=== PATIENT | female | born 1960 | race Caucasian/White ===

== ENCOUNTER → 2019-09-19 16:21 | Outpatient (CLI) | payer MEDICARE, MEDICAID, SELFPAY ==
--- NOTE | 2019-09-19 16:22 | MM_ITS ---
PROCEDURE: MM DIG SCREENING MAMM BI W/CAD CLINICAL INDICATION: screening There is a history of breast cancer patient's maternal aunt. There have been previous biopsies on each breast for benign disease. COMPARISON: None, this is a baseline screening examination TECHNIQUE: Standard CC and MLO images and 3D Tomosynthesis was obtained. R2 CAD reviewed. FINDINGS: [id number] fibroglandular densities are seen in the central portions of both breasts. There is a small spherical mass deep within the left breast medial aspect at approximately the 9 o'clock position with smooth borders and associated benign-appearing microcalcification. Recommend the patient return for ultrasound examination left breast since this is a baseline study. There is another benign-appearing microcalcification left breast. There are no suspicious microcalcifications. IMPRESSION: Fibrofatty parenchyma with benign-appearing asymmetric density left breast BI-RAD Category: 0 Need Additional Imaging Evaluation FOLLOW-UP: IMM Immediate Follow-up Recommended (A letter has been sent to the patient regarding results of the study.) Dictated by: Dr. Heriberto Worrell MD 09/19/2019 18:[address] Heriberto Worrell MD in [place] 09/19/2019 18:35
== END ==
PROVIDERS: PCP Nurse Practitioner Family; Visit Provider Emergency Medicine
DX: Z12.31 Encounter for screening mammogram for malignant neoplasm of breast (principal)
CPT/HCPCS: 77063; 77067

== ENCOUNTER → 2020-03-18 15:14 | Outpatient (CLI) | payer MEDICARE, MEDICAID, SELFPAY ==
[2020-03-18 15:51] LABS: Chloride 108 mmol/L (98-107); Sodium 145 mmol/L (136-145)
[2020-03-18 15:52] LABS: Potassium 4.7 mmoL/L (3.5-5.1)
[2020-03-18 15:54] LABS: Alanine Aminotransferase 11 U/L (12-78); Albumin Level 4.2 g/dl (3.5-5.0); Albumin/Globulin Ratio 1.5 (1.1-1.8); Alkaline Phosphatase 88 U/L (38-126); Anion Gap 12.7 mEq/L (5-15); Aspartate Amino Transferase 21 U/L (14-36); Bilirubin,Total 0.6 mg/dl (0.2-1.3); Blood Urea Nitrogen 13 mg/dl (7-17); Carbon Dioxide 29 mmol/L (22.0-30.0); Cholesterol 204 mg/dl (140-200); Estimated Glomerular Filt Rate 85 ml/min (>60); GFR (African American) 103 ML/MIN (>60); Globulin 2.8 g/dL (1.3-3.2); Triglycerides 105 mg/dl (30-150); VLDL Cholesterol 21 mg/dL (0-40)
[2020-03-18 15:55] LABS: Calcium 10.3 mg/dl (8.4-10.2); Chol/HDL Ratio 2.8 (1-3.5); Glucose 94 mg/dl (74-100); HDL Cholesterol 73 mg/dl (40-60)
[2020-03-18 16:06] LABS: Basophils # 0.1 K/mm3 (0-0.2); Basophils % 0.5 % (0.1-2.0); Eosinophils # 0.2 K/mm3 (0.0-0.4); Eosinophils % 2.2 % (0.1-12.0); Hematocrit 51.1 % (37.0-47.0); Hemoglobin 16.9 g/dL (12.2-16.2); Lymphocytes # 3.5 K/mm3 (0.7-4.5); Lymphocytes % 36.1 % (10-50); Mean Corpuscular HGB Conc 33.2 g/dL (31.8-35.4); Mean Corpuscular Hemoglobin 31.7 pg (27.0-31.2); Mean Corpuscular Volume 95.5 fl (81-99); Mean Platelet Volume 9.1 fl (7.4-10.4); Monocytes # 0.5 K/mm3 (0.1-1.0); Monocytes % 4.7 % (1.7-9.3); Neutrophils # 5.5 K/mm3 (1.8-7.8); Neutrophils % 56.5 % (37.0-80.0); Platelet Count 353 K/mm3 (142-424); Red Blood Count 5.35 M/mm3 (4.20-5.40); Red Cell Distribution Width 15.3 % (11.5-17.5); White Blood Count 9.8 K/mm3 (4.8-10.8)
[2020-03-18 16:07] LABS: Direct LDL Cholesterol 112.74 mg/dL (100-129)
[2020-03-18 16:10] LABS: 25-OH Vitamin D, Total 37.1 ng/mL (30-100)
[2020-03-18 16:26] LABS: Thyroid Stimulating Hormone 1.06 uIU/mL (0.465-4.68)
== END ==
PROVIDERS: Visit Provider Emergency Medicine
DX: K57.90 Diverticulosis of intestine, part unspecified, without perforation or abscess without bleeding (principal); E07.9 Disorder of thyroid, unspecified; E78.5 Hyperlipidemia, unspecified; E55.9 Vitamin D deficiency, unspecified
CPT/HCPCS: 80053; 80061; 82306; 84439; 84443; 85025

== ENCOUNTER → 2020-04-09 08:41 | Outpatient (CLI) | payer MEDICARE, MEDICAID, SELFPAY ==
--- NOTE | 2020-04-09 08:41 | US_ITS ---
PROCEDURE: US BREAST LT COMPLETE CLINICAL INDICATION: abn mamm COMPARISON: MG MM DIG SCREENING MAMM BI W/CAD from 09/19/2019 FINDINGS: Appearing cystic lesion at the 10 o'clock position near the nipple measuring 0.6 by 0.7 x 0.4 cm. This appears to be a benign cyst with internal septation. Mild acoustic enhancement beneath this lesion. There is a smaller cystic lesion 12 o'clock position near the nipple measuring 0.3 by point 2 by 0.3 cm in this likely is a small benign cyst. There is another small cystic lesion at the 11 o'clock position near the nipple measuring 0.3 by 0.2 x 0.5 cm. There are 2 normal appearing nodes in the axilla. There is no suspicious solid lesions seen. IMPRESSION: Primarily benign-appearing cystic lesions all near the nipple. Since the small nodular density seen deep within the left breast on the baseline mammogram is not definitely seen on the ultrasound exam recommend for six-month follow-up left mammogram for continuing evaluation at which time repeat ultrasound could be performed as well. Dictated by: Dr. Heriberto Worrell MD 04/17/2020 14:07 Dr. Heriberto Worrell MD in [place] 04/17/2020 14:07
== END ==
PROVIDERS: PCP Emergency Medicine; Visit Provider Emergency Medicine
DX: R92.8 Other abnormal and inconclusive findings on diagnostic imaging of breast (principal)
CPT/HCPCS: 76641

== ENCOUNTER → 2020-09-28 17:27 | Outpatient (CLI) | payer MEDICARE, MEDICAID, SELFPAY ==
[2020-09-28 20:17] LABS: Amphetamine/Metha Screen,Urine Negative ng/ml (<1000); Barbiturates Screen,Urine Negative ng/ml (<200)
[2020-09-28 20:18] LABS: Benzodiazepines Screen,Urine Negative ng/ml (<200)
[2020-09-28 20:19] LABS: Cannabinoid Screen,Urine Positive ng/ml (<50); Cocaine Screen,Urine Negative ng/ml (<300)
[2020-09-28 20:20] LABS: Methadone Screen,Urine Negative ng/ml (<300)
[2020-09-28 20:21] LABS: Opiate Screen,Urine Negative ng/ml (<300); Phencyclidine Screen,Urine Negative ng/ml (<25)
== END ==
PROVIDERS: Visit Provider Emergency Medicine
DX: M54.5 Low back pain (principal); Z79.899 Other long term (current) drug therapy
CPT/HCPCS: 80305

== ENCOUNTER → 2020-11-27 16:39 | Outpatient (CLI) | payer MEDICARE, MEDICAID, SELFPAY ==
[2020-11-27 18:01] LABS: Benzodiazepines Screen,Urine Negative ng/ml (<200)
[2020-11-27 18:02] LABS: Amphetamine/Metha Screen,Urine Negative ng/ml (<1000)
[2020-11-27 18:03] LABS: Barbiturates Screen,Urine Negative ng/ml (<200)
[2020-11-27 18:04] LABS: Cannabinoid Screen,Urine Positive ng/ml (<50); Cocaine Screen,Urine Negative ng/ml (<300)
[2020-11-27 18:05] LABS: Methadone Screen,Urine Negative ng/ml (<300)
[2020-11-27 18:06] LABS: Opiate Screen,Urine Negative ng/ml (<300)
[2020-11-27 18:07] LABS: Phencyclidine Screen,Urine Negative ng/ml (<25)
== END ==
PROVIDERS: Visit Provider Emergency Medicine
DX: M54.5 Low back pain (principal)
CPT/HCPCS: 80305

== ENCOUNTER → 2021-01-27 17:58 | Outpatient (CLI) | payer MEDICARE, MEDICAID, SELFPAY ==
[2021-01-27 19:26] LABS: Amphetamine/Metha Screen,Urine Negative ng/ml (<1000); Barbiturates Screen,Urine Negative ng/ml (<200)
[2021-01-27 19:27] LABS: Benzodiazepines Screen,Urine Negative ng/ml (<200); Cannabinoid Screen,Urine Positive ng/ml (<50)
[2021-01-27 19:28] LABS: Cocaine Screen,Urine Negative ng/ml (<300)
[2021-01-27 19:29] LABS: Methadone Screen,Urine Negative ng/ml (<300); Opiate Screen,Urine Negative ng/ml (<300)
[2021-01-27 19:31] LABS: Phencyclidine Screen,Urine Negative ng/ml (<25)
== END ==
PROVIDERS: Visit Provider Emergency Medicine
DX: M54.5 Low back pain (principal)
CPT/HCPCS: 80305

== ENCOUNTER → 2021-03-24 15:13 | Outpatient (CLI) | payer MEDICARE, MEDICAID, SELFPAY ==
[2021-03-24 15:56] LABS: Amphetamine/Metha Screen,Urine Negative ng/ml (<1000)
[2021-03-24 15:57] LABS: Barbiturates Screen,Urine Negative ng/ml (<200); Benzodiazepines Screen,Urine Negative ng/ml (<200)
[2021-03-24 15:58] LABS: Cannabinoid Screen,Urine Positive ng/ml (<50)
[2021-03-24 15:59] LABS: Cocaine Screen,Urine Negative ng/ml (<300)
[2021-03-24 16:00] LABS: Methadone Screen,Urine Negative ng/ml (<300)
[2021-03-24 16:01] LABS: Opiate Screen,Urine Negative ng/ml (<300); Phencyclidine Screen,Urine Negative ng/ml (<25)
== END ==
PROVIDERS: Visit Provider Emergency Medicine
DX: M54.5 Low back pain (principal)
CPT/HCPCS: 80305

== ENCOUNTER → 2021-04-13 09:25 | Outpatient (CLI) | payer MEDICARE, MEDICAID, SELFPAY ==
--- NOTE | 2021-04-13 09:25 | US_ITS ---
PROCEDURE: US BREAST LT COMPLETE CLINICAL INDICATION: abn mammogram COMPARISON: MG MM DIG SCREENING MAMM BI W/CAD from 09/19/2019 US US BREAST LT COMPLETE from 04/09/2020 FINDINGS: At 12 o'clock there is a 4 x 3 mm cyst. At 10 o'clock there is a 5 mm complicated cyst near the nipple.. This cyst has developed some nodular wall thickening posteriorly since the previous exam. At 11 o'clock there is a 3 mm cyst. No sonographic abnormality that would correspond to the mammographic abnormality on 09/19/2019exam exam. Therefore, recommend mammogram for further evaluation. IMPRESSION: Left breast cysts as described above 1 of which is developed a complex appearance with discordant findings compared to mammogram of 09/19/2019. BI-RADS category 0, and additional imaging suggested. Recommend mammogram for further evaluation of both breasts as the patient is due for a right-sided checkup as well Dictated by: Enrique Hanks MD 04/23/2021 10:58 Enrique Hanks MD in [place] 04/23/2021 10:58
== END ==
PROVIDERS: PCP Emergency Medicine; Visit Provider Emergency Medicine
DX: R92.8 Other abnormal and inconclusive findings on diagnostic imaging of breast (principal)
CPT/HCPCS: 76641

== ENCOUNTER → 2021-05-06 09:46 | Outpatient (CLI) | payer MEDICARE, MEDICAID, SELFPAY ==
--- NOTE | 2021-05-06 09:46 | FL_ITS ---
PROCEDURE: FL BARIUM SWALLOW CLINICAL INDICATION: dysphagia COMPARISON: No exams were available for comparison TECHNIQUE: In the upright position the patient was observed to swallow barium in both the AP and lateral view. The cervical esophagus was examined under fluoroscopy with images obtained. The patient was then placed prone in the right anterior oblique position and was observed to swallow barium with Valsalva technique . FLUOROSCOPY TIME: 2 minutes 10 seconds FINDINGS: There was no evidence of aspiration. Swallowing function is normal. Spot films of the cervical esophagus show mild intermittent posterior indentation of the barium column at the C6-7 level consistent with cricopharyngeal dysfunction. There are few tertiary contractions in the lower 2/3 of the esophagus. There is no hiatal hernia or GE reflux seen. IMPRESSION: Mild cricopharyngeal dysfunction lower cervical esophagus and very mild esophageal dyskinesia lower 3rd of the esophagus Dictated by: Dr. Heriberto Worrell MD 05/06/2021 11:52 Dr. Heriberto Worrell MD in [place] 05/06/2021 11:52
== END ==
PROVIDERS: PCP Emergency Medicine; Visit Provider Emergency Medicine
DX: R13.10 Dysphagia, unspecified (principal)
CPT/HCPCS: 74220

== ENCOUNTER → 2021-05-19 14:45 | Outpatient (CLI) | payer MEDICARE, MEDICAID, SELFPAY ==
[2021-05-19 18:01] LABS: Amphetamine/Metha Screen,Urine Negative ng/ml (<1000)
[2021-05-19 18:02] LABS: Barbiturates Screen,Urine Negative ng/ml (<200); Cannabinoid Screen,Urine Positive ng/ml (<50)
[2021-05-19 18:03] LABS: Cocaine Screen,Urine Negative ng/ml (<300); Methadone Screen,Urine Negative ng/ml (<300)
[2021-05-19 18:04] LABS: Opiate Screen,Urine Negative ng/ml (<300)
[2021-05-19 18:05] LABS: Phencyclidine Screen,Urine Negative ng/ml (<25)
[2021-05-19 18:09] LABS: Benzodiazepines Screen,Urine Negative ng/ml (<200)
== END ==
PROVIDERS: Visit Provider Emergency Medicine
DX: Z79.899 Other long term (current) drug therapy (principal)
CPT/HCPCS: 80305

== ENCOUNTER → 2021-07-16 13:55 | Outpatient (CLI) | payer MEDICARE, MEDICAID, SELFPAY ==
[2021-07-16 14:40] LABS: Amphetamine/Metha Screen,Urine Negative ng/ml (<1000)
[2021-07-16 14:41] LABS: Barbiturates Screen,Urine Negative ng/ml (<200)
[2021-07-16 14:43] LABS: Benzodiazepines Screen,Urine Negative ng/ml (<200); Cannabinoid Screen,Urine Positive ng/ml (<50)
[2021-07-16 14:44] LABS: Cocaine Screen,Urine Negative ng/ml (<300)
[2021-07-16 14:45] LABS: Methadone Screen,Urine Negative ng/ml (<300); Opiate Screen,Urine Negative ng/ml (<300)
[2021-07-16 14:46] LABS: Phencyclidine Screen,Urine Negative ng/ml (<25)
== END ==
PROVIDERS: Visit Provider Emergency Medicine
DX: Z79.899 Other long term (current) drug therapy (principal)
CPT/HCPCS: 80305

== ENCOUNTER → 2021-09-15 14:38 | Outpatient (CLI) | payer MEDICARE, MEDICAID, SELFPAY ==
[2021-09-15 13:02] LABS: Basophils # 0.1 K/mm3 (0-0.2); Basophils % 0.4 % (0.1-2.0); Eosinophils # 0.2 K/mm3 (0.0-0.4); Hematocrit 48.1 % (37.0-47.0); Hemoglobin 15.9 g/dL (12.2-16.2); Lymphocytes # 4.1 K/mm3 (0.7-4.5); Lymphocytes % 37.9 % (10-50); Mean Corpuscular Hemoglobin 32.2 pg (27.0-31.2); Mean Corpuscular Volume 97.6 fl (81-99); Mean Platelet Volume 8.9 fl (7.4-10.4); Monocytes # 0.7 K/mm3 (0.1-1.0); Monocytes % 6.1 % (1.7-9.3); Neutrophils # 5.8 K/mm3 (1.8-7.8); Neutrophils % 53.7 % (37.0-80.0); Platelet Count 326 K/mm3 (142-424); Red Blood Count 4.93 M/mm3 (4.20-5.40); Red Cell Distribution Width 13.8 % (11.5-17.5); White Blood Count 10.7 K/mm3 (4.8-10.8)
[2021-09-15 13:59] LABS: 25-OH Vitamin D, Total 39.4 ng/mL (30-100); Free T4 (Free Thyroxine) 1.62 ng/dl (0.78-2.19)
[2021-09-15 14:14] LABS: Phencyclidine Screen,Urine Negative ng/ml (<25)
[2021-09-15 14:23] LABS: Amphetamine/Metha Screen,Urine Negative ng/ml (<1000)
[2021-09-15 14:25] LABS: Cannabinoid Screen,Urine Positive ng/ml (<50)
[2021-09-15 14:26] LABS: Barbiturates Screen,Urine Negative ng/ml (<200); Benzodiazepines Screen,Urine Negative ng/ml (<200)
[2021-09-15 14:27] LABS: Cocaine Screen,Urine Negative ng/ml (<300); Methadone Screen,Urine Negative ng/ml (<300)
[2021-09-15 14:28] LABS: Opiate Screen,Urine Negative ng/ml (<300)
[2021-09-15 15:08] LABS: Chloride 106 mmol/L (98-107); Sodium 136 mmol/L (136-145)
[2021-09-15 15:09] LABS: Potassium 4.4 mmoL/L (3.5-5.1)
[2021-09-15 15:11] LABS: Alanine Aminotransferase 17 U/L (12-78); Albumin Level 4.3 g/dl (3.5-5.0); Albumin/Globulin Ratio 1.9 (1.1-1.8); Alkaline Phosphatase 99 U/L (38-126); Anion Gap 6.4 mEq/L (5-15); Aspartate Amino Transferase 26 U/L (14-36); Bilirubin,Total 0.5 mg/dl (0.2-1.3); Blood Urea Nitrogen 19 mg/dl (7-17); Carbon Dioxide 28 mmol/L (22.0-30.0); Cholesterol 131 mg/dl (140-200); Estimated Glomerular Filt Rate 101 ml/min (>60); GFR (African American) 122 ML/MIN (>60); Globulin 2.3 g/dL (1.3-3.2); Total Protein,Serum 6.6 g/dl (6.3-8.2); Triglycerides 77 mg/dl (30-150); VLDL Cholesterol 15 mg/dL (0-40)
[2021-09-15 15:12] LABS: Calcium 8.7 mg/dl (8.4-10.2); Glucose 94 mg/dl (74-100); HDL Cholesterol 64 mg/dl (40-60)
[2021-09-15 15:22] LABS: Direct LDL Cholesterol 56.13 mg/dL (100-129)
[2021-09-15 15:40] LABS: Thyroid Stimulating Hormone 0.08 uIU/mL (0.465-4.68)
== END ==
PROVIDERS: Visit Provider Emergency Medicine
DX: G89.29 Other chronic pain (principal); J44.9 Chronic obstructive pulmonary disease, unspecified; M54.50 Low back pain, unspecified; R50.9 Fever, unspecified; Z79.899 Other long term (current) drug therapy; E55.9 Vitamin D deficiency, unspecified
CPT/HCPCS: 80053; 80061; 80305; 82306; 84439; 84443; 85025

== ENCOUNTER → 2021-11-10 12:43 | Outpatient (CLI) | payer MEDICARE, MEDICAID, SELFPAY ==
[2021-11-10 14:28] LABS: Amphetamine/Metha Screen,Urine Negative ng/ml (<1000)
[2021-11-10 14:29] LABS: Barbiturates Screen,Urine Negative ng/ml (<200)
[2021-11-10 14:30] LABS: Benzodiazepines Screen,Urine Negative ng/ml (<200); Cannabinoid Screen,Urine Positive ng/ml (<50)
[2021-11-10 14:31] LABS: Cocaine Screen,Urine Negative ng/ml (<300)
[2021-11-10 14:32] LABS: Methadone Screen,Urine Negative ng/ml (<300); Opiate Screen,Urine Negative ng/ml (<300)
[2021-11-10 14:33] LABS: Phencyclidine Screen,Urine Negative ng/ml (<25)
== END ==
PROVIDERS: PCP Emergency Medicine; Visit Provider Emergency Medicine
DX: Z79.899 Other long term (current) drug therapy (principal)
CPT/HCPCS: 80305

== ENCOUNTER → 2022-01-05 14:18 | Outpatient (CLI) | payer MEDICARE, MEDICAID, SELFPAY ==
[2022-01-05 13:49] LABS: Amphetamine/Metha Screen,Urine Negative ng/ml (<1000)
[2022-01-05 13:50] LABS: Barbiturates Screen,Urine Negative ng/ml (<200); Benzodiazepines Screen,Urine Negative ng/ml (<200)
[2022-01-05 13:51] LABS: Cannabinoid Screen,Urine Positive ng/ml (<50)
[2022-01-05 13:52] LABS: Cocaine Screen,Urine Negative ng/ml (<300); Methadone Screen,Urine Negative ng/ml (<300)
[2022-01-05 13:53] LABS: Opiate Screen,Urine Positive ng/ml (<300)
[2022-01-05 13:55] LABS: Phencyclidine Screen,Urine Negative ng/ml (<25)
== END ==
PROVIDERS: PCP Emergency Medicine; Visit Provider Emergency Medicine
DX: Z79.899 Other long term (current) drug therapy (principal)
CPT/HCPCS: 80305

== ENCOUNTER → 2022-04-22 07:15 | Outpatient (CLI) | payer MEDICARE, MEDICAID, SELFPAY ==
[2022-04-22 18:49] LABS: Amphetamine/Metha Screen,Urine Negative ng/ml (<1000); Barbiturates Screen,Urine Negative ng/ml (<200)
[2022-04-22 18:50] LABS: Benzodiazepines Screen,Urine Negative ng/ml (<200)
[2022-04-22 18:51] LABS: Cannabinoid Screen,Urine Positive ng/ml (<50)
[2022-04-22 18:52] LABS: Cocaine Screen,Urine Negative ng/ml (<300); Methadone Screen,Urine Negative ng/ml (<300)
[2022-04-22 18:53] LABS: Opiate Screen,Urine Negative ng/ml (<300)
[2022-04-22 18:54] LABS: Phencyclidine Screen,Urine Negative ng/ml (<25)
== END ==
PROVIDERS: PCP Emergency Medicine; Visit Provider Emergency Medicine
DX: Z79.899 Other long term (current) drug therapy (principal)
CPT/HCPCS: 80305

== ENCOUNTER → 2022-06-20 11:00 | Outpatient (CLI) | payer MEDICARE, MEDICAID, SELFPAY ==
[2022-06-20 19:25] LABS: Amphetamine/Metha Screen,Urine Negative ng/ml (<1000)
[2022-06-20 19:26] LABS: Barbiturates Screen,Urine Negative ng/ml (<200)
[2022-06-20 19:27] LABS: Benzodiazepines Screen,Urine Negative ng/ml (<200); Cannabinoid Screen,Urine Positive ng/ml (<50)
[2022-06-20 19:28] LABS: Cocaine Screen,Urine Negative ng/ml (<300); Methadone Screen,Urine Negative ng/ml (<300)
[2022-06-20 19:29] LABS: Opiate Screen,Urine Negative ng/ml (<300)
[2022-06-20 19:53] LABS: Phencyclidine Screen,Urine Negative ng/ml (<25)
== END ==
PROVIDERS: PCP Emergency Medicine; Visit Provider Emergency Medicine
DX: Z79.899 Other long term (current) drug therapy (principal)
CPT/HCPCS: 80305

== ENCOUNTER → 2022-10-05 09:58 | Outpatient (CLI) | payer MEDICARE, MEDICAID, SELFPAY ==
[2022-10-05 14:10] LABS: Basophils # 0.1 K/mm3 (0-0.2); Basophils % 0.8 % (0.1-2.0); Eosinophils # 0.2 K/mm3 (0.0-0.4); Eosinophils % 2.1 % (0.1-12.0); Hematocrit 48.1 % (37.0-47.0); Hemoglobin 15.7 g/dL (12.2-16.2); Lymphocytes # 4.1 K/mm3 (0.7-4.5); Lymphocytes % 38.3 % (10-50); Mean Corpuscular HGB Conc 32.6 g/dL (31.8-35.4); Mean Corpuscular Hemoglobin 32.8 pg (27.0-31.2); Mean Corpuscular Volume 100.5 fl (81-99); Mean Platelet Volume 9.6 fl (7.4-10.4); Monocytes # 0.5 K/mm3 (0.1-1.0); Monocytes % 4.9 % (1.7-9.3); Neutrophils # 5.8 K/mm3 (1.8-7.8); Neutrophils % 53.9 % (37.0-80.0); Platelet Count 318 K/mm3 (142-424); Red Blood Count 4.79 M/mm3 (4.20-5.40); Red Cell Distribution Width 14.7 % (11.5-17.5); White Blood Count 10.7 K/mm3 (4.8-10.8)
[2022-10-05 14:16] LABS: Amphetamine/Metha Screen,Urine Negative ng/ml (<1000)
[2022-10-05 14:17] LABS: Barbiturates Screen,Urine Negative ng/ml (<200)
[2022-10-05 14:18] LABS: Benzodiazepines Screen,Urine Negative ng/ml (<200); Methadone Screen,Urine Negative ng/ml (<300)
[2022-10-05 14:19] LABS: Cannabinoid Screen,Urine Positive ng/ml (<50); Cocaine Screen,Urine Negative ng/ml (<300)
[2022-10-05 14:20] LABS: Phencyclidine Screen,Urine Negative ng/ml (<25)
[2022-10-05 14:21] LABS: Opiate Screen,Urine Positive ng/ml (<300)
[2022-10-05 14:41] LABS: Alanine Aminotransferase 16 U/L (12-78); Albumin Level 3.9 g/dl (3.5-5.0); Albumin/Globulin Ratio 1.6 (1.1-1.8); Alkaline Phosphatase 92 U/L (38-126); Anion Gap 6.2 mEq/L (5-15); Aspartate Amino Transferase 27 U/L (14-36); Bilirubin,Total 0.6 mg/dl (0.2-1.3); Blood Urea Nitrogen 12 mg/dl (7-17); Calcium 8.7 mg/dl (8.4-10.2); Carbon Dioxide 29 mmol/L (22.0-30.0); Chloride 106 mmol/L (98-107); Chol/HDL Ratio 1.9 (1-3.5); Cholesterol 113 mg/dl (140-200); Estimated Glomerular Filt Rate 101 ml/min (>60); GFR (African American) 122 ML/MIN (>60); Globulin 2.4 g/dL (1.3-3.2); Glucose 82 mg/dl (74-100); HDL Cholesterol 60 mg/dl (40-60); Potassium 4.2 mmoL/L (3.5-5.1); Sodium 137 mmol/L (136-145); Total Protein,Serum 6.3 g/dl (6.3-8.2); Triglycerides 90 mg/dl (30-150); VLDL Cholesterol 18 mg/dL (0-40)
[2022-10-05 14:56] LABS: Free T4 (Free Thyroxine) 1.97 ng/dl (0.78-2.19)
[2022-10-05 15:13] LABS: Thyroid Stimulating Hormone 0.11 uIU/mL (0.465-4.68)
== END ==
PROVIDERS: PCP Emergency Medicine; Visit Provider Emergency Medicine
DX: R53.83 Other fatigue (principal); Z79.899 Other long term (current) drug therapy; E07.9 Disorder of thyroid, unspecified; E55.9 Vitamin D deficiency, unspecified; M54.41 Lumbago with sciatica, right side
CPT/HCPCS: 80053; 80061; 80305; 82306; 84439; 84443; 85025

== ENCOUNTER → 2022-10-18 13:36 | Outpatient (CLI) | payer MEDICARE, MEDICAID, SELFPAY ==
--- NOTE | 2022-10-18 13:36 | CT_ITS ---
FINAL REPORT CLINICAL HISTORY: lung cancer screening CURRENT SMOKER 1/2PPD X35 YEARS FINDINGS: Low-Dose Chest CT CTDI vol (mGy): 2.90 DLP (mGy-cm): 97.95 Axial images were obtained from the lung apex to the mid abdomen by computed tomography. Low-dose protocol was utilized. FINDINGS: CHEST: There is no axillary adenopathy. There is no hilar or mediastinal adenopathy. The heart is proper size. There is no pericardial or pleural effusion. Limited images of the upper abdomen are unremarkable. Lung window images demonstrate no suspicious infiltrate or nodule. There is linear scarring or atelectasis in the inferior right upper lobe and lingula. IMPRESSION: Lung RADS category 1. Recommend 12 month follow-up low-dose chest CT. Reviewed, Interpreted and Dictated by Leandro Allen MD Transcribed by Pepe Dukes Authenticated and [facility]
--- NOTE | 2022-10-18 13:51 | MR_ITS ---
FINAL REPORT CLINICAL HISTORY: back pain pain since she was 12 years old FINDINGS: Multiplanar MR imaging of the lumbar spine was performed without contrast. On the sagittal T2-weighted images, there is abnormal decreased signal at L3-4, L4-5 and L5-S1 lumbar discs. The vertebrae are of normal height. There is minimal spondylolisthesis of L4 on L5. L1-2: There is no significant canal stenosis or neural foraminal narrowing. L2-3: There is no significant canal stenosis or neural foraminal narrowing. L3-4: There is a mild diffuse disc bulge with left posterolateral disc protrusion. There is moderate left neural foraminal narrowing. L4-5: A moderate diffuse disc bulge is present with moderate spinal canal compromise and moderate to high-grade left neural foraminal narrowing. L5-S1: A mild diffuse disc bulge is present with moderate right neural foraminal narrowing. IMPRESSION: Minimal spondylolisthesis of L4 on L5. Neuroforaminal compromise, most evidence on the left at L3-4 and L4-5 and on the right at L5-S1. Reviewed, Interpreted and Dictated by Leandro Allen MD Transcribed by Stacia Zhao Authenticated and . [facility]
== END ==
PROVIDERS: PCP Emergency Medicine; Visit Provider Emergency Medicine
DX: Z87.891 Personal history of nicotine dependence (principal); M54.16 Radiculopathy, lumbar region; Z12.2 Encounter for screening for malignant neoplasm of respiratory organs
CPT/HCPCS: 71271; 72148; 76376

== ENCOUNTER → 2022-11-23 10:17 | Outpatient (CLI) | payer MEDICARE, MEDICAID, SELFPAY ==
--- NOTE | 2022-11-23 10:18 | MM_ITS ---
PROCEDURE INFORMATION: Exam: MG Bilateral Screening 3D Mammography Exam date and time: 11/23/2022 10:11 AM Age: 62 years old Clinical indication: Screening examination TECHNIQUE: Imaging protocol: Bilateral Screening tomosynthesis and 2D mammography including computer-aided detection (CAD) when performed. COMPARISON: 1. MG MM DIG SCREENING MAMM BI W/CAD 09/19/2019 4:31 PM 2. US BREAST LT COMPLETE 04/13/2021 9:39 AM FINDINGS: MAMMOGRAPHY: Breast composition: There are scattered areas of fibroglandular density. Mass: None. Architectural distortion: None. Calcifications: No suspicious calcifications. Asymmetric density: None. Skin thickening: None. Axillary adenopathy: None. IMPRESSION: No mammographic evidence of malignancy. Annual screening is recommended unless otherwise clinically indicated. ASSESSMENT: BI-RADS Category 1: Negative
== END ==
PROVIDERS: PCP Emergency Medicine; Visit Provider Physician Assistant
DX: Z12.31 Encounter for screening mammogram for malignant neoplasm of breast (principal)
CPT/HCPCS: 77063; 77067

== ENCOUNTER → 2022-12-06 11:15 | Outpatient (CLI) | payer MEDICARE, MEDICAID, SELFPAY ==
[2022-12-06 15:52] LABS: Barbiturates Screen,Urine Negative ng/ml (<200)
[2022-12-06 15:53] LABS: Amphetamine/Metha Screen,Urine Negative ng/ml (<1000); Benzodiazepines Screen,Urine Negative ng/ml (<200)
[2022-12-06 15:54] LABS: Cannabinoid Screen,Urine Positive ng/ml (<50)
[2022-12-06 15:55] LABS: Cocaine Screen,Urine Negative ng/ml (<300); Methadone Screen,Urine Negative ng/ml (<300)
[2022-12-06 15:56] LABS: Opiate Screen,Urine Negative ng/ml (<300); Phencyclidine Screen,Urine Negative ng/ml (<25)
== END ==
PROVIDERS: PCP Emergency Medicine; Visit Provider Emergency Medicine
DX: Z79.899 Other long term (current) drug therapy (principal)
CPT/HCPCS: 80305

== ENCOUNTER → 2023-04-19 09:55 | Outpatient (CLI) | payer MEDICARE, MEDICAID, SELFPAY ==
[2023-03-31 14:02] LABS: Amphetamine/Metha Screen,Urine Negative ng/ml (<1000)
[2023-03-31 14:03] LABS: Cannabinoid Screen,Urine Positive ng/ml (<50)
[2023-03-31 14:04] LABS: Barbiturates Screen,Urine Negative ng/ml (<200)
[2023-03-31 14:05] LABS: Benzodiazepines Screen,Urine Negative ng/ml (<200); Opiate Screen,Urine Negative ng/ml (<300)
[2023-03-31 14:06] LABS: Cocaine Screen,Urine Negative ng/ml (<300)
[2023-03-31 14:07] LABS: Methadone Screen,Urine Negative ng/ml (<300)
[2023-03-31 14:09] LABS: Phencyclidine Screen,Urine Negative ng/ml (<25)
== END ==
PROVIDERS: PCP Emergency Medicine; Visit Provider Emergency Medicine
DX: Z79.899 Other long term (current) drug therapy (principal)
CPT/HCPCS: 80305

== ENCOUNTER → 2023-05-29 16:33 | Outpatient (CLI) | payer MEDICARE, MEDICAID, SELFPAY ==
[2023-05-29 23:09] LABS: Amphetamine/Metha Screen,Urine Negative ng/ml (<1000)
[2023-05-29 23:10] LABS: Barbiturates Screen,Urine Negative ng/ml (<200); Benzodiazepines Screen,Urine Negative ng/ml (<200)
[2023-05-29 23:11] LABS: Cannabinoid Screen,Urine Positive ng/ml (<50)
[2023-05-29 23:12] LABS: Cocaine Screen,Urine Negative ng/ml (<300); Methadone Screen,Urine Negative ng/ml (<300)
[2023-05-29 23:13] LABS: Opiate Screen,Urine Negative ng/ml (<300); Phencyclidine Screen,Urine Negative ng/ml (<25)
== END ==
PROVIDERS: PCP Emergency Medicine; Visit Provider Emergency Medicine
DX: Z79.899 Other long term (current) drug therapy (principal)
CPT/HCPCS: 80305

== ENCOUNTER → 2023-06-20 09:10 | Outpatient (CLI) | payer MEDICARE, MEDICAID, SELFPAY ==
[2023-06-20 23:20] LABS: Phencyclidine Screen,Urine Negative ng/ml (<25)
[2023-06-20 23:26] LABS: Amphetamine/Metha Screen,Urine Negative ng/ml (<1000)
[2023-06-20 23:27] LABS: Barbiturates Screen,Urine Negative ng/ml (<200); Benzodiazepines Screen,Urine Negative ng/ml (<200)
[2023-06-20 23:28] LABS: Cannabinoid Screen,Urine Positive ng/ml (<50)
[2023-06-20 23:31] LABS: Cocaine Screen,Urine Negative ng/ml (<300); Opiate Screen,Urine Negative ng/ml (<300)
[2023-06-20 23:32] LABS: Methadone Screen,Urine Negative ng/ml (<300)
== END ==
PROVIDERS: PCP Emergency Medicine; Visit Provider Emergency Medicine
DX: Z79.899 Other long term (current) drug therapy (principal)
CPT/HCPCS: 80305

== ENCOUNTER → 2023-07-05 10:18 | Outpatient (CLI) | payer MEDICARE, MEDICAID, SELFPAY ==
--- NOTE | 2023-07-05 10:24 | XR_ITS ---
FINAL REPORT CLINICAL HISTORY: dyspnea FINDINGS: TWO-VIEW CHEST The heart size is normal. The mediastinum is normal. The lungs are hyperinflated consistent with COPD. There is no pneumothorax. IMPRESSION: No acute cardiopulmonary process. Reviewed, Interpreted and Dictated by Kush Pierce III, MD Transcribed by Yumiko Levin Authenticated and [facility]
[2023-07-05 11:07] LABS: Basophils # 0.1 K/mm3 (0-0.2); Basophils % 0.6 % (0.1-2.0); Eosinophils # 0.1 K/mm3 (0.0-0.4); Eosinophils % 1.2 % (0.1-12.0); Hematocrit 48.2 % (37.0-47.0); Hemoglobin 15.8 g/dL (12.2-16.2); Lymphocytes % 32.5 % (10-50); Mean Corpuscular HGB Conc 32.8 g/dL (31.8-35.4); Mean Corpuscular Hemoglobin 32.8 pg (27.0-31.2); Mean Corpuscular Volume 100.2 fl (81-99); Mean Platelet Volume 7.7 fl (7.4-10.4); Monocytes # 0.5 K/mm3 (0.1-1.0); Neutrophils # 5.7 K/mm3 (1.8-7.8); Neutrophils % 60.7 % (37.0-80.0); Platelet Count 261 K/mm3 (142-424); Red Blood Count 4.81 M/mm3 (4.20-5.40); Red Cell Distribution Width 15.9 % (11.5-17.5); White Blood Count 9.3 K/mm3 (4.8-10.8)
[2023-07-05 11:26] LABS: Alanine Aminotransferase 18 U/L (12-78); Albumin Level 4.2 g/dl (3.5-5.0); Alkaline Phosphatase 100 U/L (38-126); Anion Gap 8.1 mEq/L (5-15); Aspartate Amino Transferase 26 U/L (14-36); Bilirubin,Direct 0.1 mg/dl (0.0-0.4); Bilirubin,Indirect 0.3 mg/dL (0.0-0.9); Bilirubin,Total 0.4 mg/dl (0.2-1.3); Bilirubin,Unconjugated 0.4 mg/dL (0.0-1.1); Blood Urea Nitrogen 10 mg/dl (7-17); Calcium 8.8 mg/dl (8.4-10.2); Carbon Dioxide 31 mmol/L (22.0-30.0); Chloride 105 mmol/L (98-107); Cholesterol 175 mg/dl (140-200); Estimated Glomerular Filt Rate 84 ml/min (>60); GFR (African American) 102 ML/MIN (>60); Glucose 90 mg/dl (74-100); HDL Cholesterol 59 mg/dl (40-60); Magnesium 1.9 mg/dl (1.6-2.3); Potassium 4.1 mmoL/L (3.5-5.1); Sodium 140 mmol/L (136-145); Total Protein,Serum 6.8 g/dl (6.3-8.2); Triglycerides 145 mg/dl (30-150); VLDL Cholesterol 29 mg/dL (0-40)
[2023-07-05 11:39] LABS: Direct LDL Cholesterol 87.75 mg/dL (100-129)
[2023-07-05 11:45] LABS: Free T4 (Free Thyroxine) 0.75 ng/dl (0.78-2.19)
== END ==
PROVIDERS: PCP Radiology Diagnostic Radiology; Visit Provider Physician Assistant
DX: I25.10 Atherosclerotic heart disease of native coronary artery without angina pectoris (principal); R06.00 Dyspnea, unspecified; R07.9 Chest pain, unspecified; R94.31 Abnormal electrocardiogram [ECG] [EKG]; Z79.899 Other long term (current) drug therapy
CPT/HCPCS: 36415; 71046; 80048; 80061; 80076; 83735; 84439; 84443; 85025

== ENCOUNTER 2023-08-21 12:39 | Outpatient (CLI) | payer MEDICARE, MEDICAID, SELFPAY ==
[2023-08-21 19:30] LABS: Amphetamine/Metha Screen,Urine Negative ng/ml (<1000); Barbiturates Screen,Urine Negative ng/ml (<200); Benzodiazepines Screen,Urine Negative ng/ml (<200); Cannabinoid Screen,Urine Positive ng/ml (<50); Cocaine Screen,Urine Negative ng/ml (<300); Methadone Screen,Urine Negative ng/ml (<300); Opiate Screen,Urine Negative ng/ml (<300); Phencyclidine Screen,Urine Negative ng/ml (<25)
[2023-08-24 16:13] LABS: Opiates Negative (Cutoff=100)
== END 2023-08-21 23:59 ==
PROVIDERS: PCP Family Medicine; Visit Provider Family Medicine
DX: Z79.899 Other long term (current) drug therapy (principal)
CPT/HCPCS: 80307; 80361; 80365; G0480

== ENCOUNTER 2023-08-24 11:56 | Outpatient (CLI) | payer MEDICARE, MEDICAID, SELFPAY ==
[2023-08-24] VITALS (9 sets, daily range): BP systolic 99–134; BP diastolic 49–80; PULSE 44–74; RESP 16–18; TEMP 36.3; O2SAT 94–96; BMI 17.6
--- NOTE | 2023-08-24 11:57 | CT_ITS ---
APPROVED REPORT Abrasive Grader: CLINICAL INDICATION Chest Pain TECHNIQUE Image Acquisition: A 128 slice MDCT scanner (MyTo[employer] View) was used for data acquisition. A noncontrast coronary calcium scan was performed. A CT attenuation threshold of 130 Hounsfield units (HU) was used for the detection of calcium in contiguous voxels of 1 sq mm in area to be counted as individual lesions. Bolus tracking in the ascending aorta with a threshold of 180 HU was performed. Immediately afterwards, ECG synchronized cardiac CT was then performed from the cardiac base to apex using retrospective gating with ECG tube current modulation. A total of 85 mL of Isovue 370 mg/mL contrast medium was administered at 5 mL/sec followed by a saline flush using a biphasic injection protocol. A tube voltage of 120 KVp was used. The patient received the following medications prior to the cardiac CT. 75 mg of oral metoprolol 15 mg of oral ivabradine 0.8 mg of sublingual nitroglycerin The average heart rate at the time of acquisition was 84 bpm, but irregular. Image Reconstruction Transaxial images were reconstructed at 0.67 mm slide thickness. Data was reviewed interactively on an advanced workstation capable of 2 and 3-dimensional displays in all conventional reconstruction formats, including multiplanar reformations, maximum intensity projections, curved multiplanar reformations, and volume rendered reconstructions. When applicable, selected routine images describing the relevant coronary anatomy and pathology were saved and sent to PACS. Complications None Technical Quality Overall image quality was suboptimal due to irregular heart rhythm. Coronary artery opacification was adequate. Total DLP (Dose-Length Product) is 2837 mGy-cm. The reported value represents the total of one or more individual components during the CT acquisition of this date and at this time, and as such, the same value may appear in more than one CT report depending on the interpreting/reporting physicians. COMPARISON None FINDINGS CT Coronary Calcium Scoring LMA (Left Main Artery) = 0 LAD (Left Anterior Descending) = 0 LCX (Left Coronary Circumflex) = 0 RCA (Right Coronary Artery) = 42 Total Calcium Score = 42 using the AJ-130 method. The observed calcium score of 42 is at 72nd percentile for subjects of the same age, sex, and race/ethnicity. The interpretation of the calcium heart score is based on the following continuum*: 0 = no calcified plaque detected (risk of coronary artery disease is very low ??? less than 5%) 1-10 = calcium detected in extremely minimal levels (risk of coronary diseases is still low ??? less than 10%) 11-100 = mild levels of plaque detected with certainty (mild or minimal narrowing of heart arteries is likely) 101-400 = definite,at least moderate levels of plaque detected (relatively high risk of a heart attack within 3-5 years) >401-999 = extensive levels of plaque detected (high risk of heart attack, high levels of vascular disease are present, high likelihood of at least one significant coronary narrowing) *The calcium heart score quantifies the burden of coronary calcification/plaque in the coronary arteries. The calcium heart score is not able to evaluate the presence or burden of non-calcified (i.e. soft) plaque. There is no identifiable calcification in the aortic valve, mitral annulus or mitral valve, pericardium, or myocardium. Coronary CT Angiography The coronary arterial system is right dominant. Quantitative Stenosis Grading: Left Main (LM): The left main originates normally from the left sinus of Valsalva. The LM bifurcates into the left anterior descending artery and left circumflex artery. The LM is patent with no evidence of atherosclerosis. Left Anterior Descending (LAD) and Diagonal Branches: The LAD gives off 3 diagonal branch(es). The LAD and its branches are patent with no evidence of atherosclerosis. There is no evidence of LAD bridge. Left Circumflex (LCX) and Obtuse Marginals (OM): The LCX gives off 1 Obtuse Marginal (OM) branch. The LCX and its branches are patent with no evidence of atherosclerosis. Right Coronary Artery (RCA): The RCA originates normally from the right sinus of Valsalva. The RCA gives off a posterior descending artery (PDA) and posterolateral (PL) branches. There is focal calcification in the proximal RCA with minimal < 30% luminal stenosis. Non-Coronary Cardiac Findings: Analysis of the left ventricular (LV) structure and function was performed after 3-D reconstruction of the LV from axial images, with user-corrected automatic contouring for assessment of LV volumes and user-defined reconstruction from oblique planes for measurement of 3-D cardiac structure and function. LVEDV: 103 mL LVESV: 42 mL SV: 61 mL LVEF: 59.4% -The left ventricle is normal in size with normal left ventricular systolic function. -There is no left atrial appendage filling defect. Two right pulmonary veins and two left pulmonary veins drain normally into the left atrium. -No pericardial thickening or calcification. -Central and branch pulmonary arteries in the [id number] are unremarkable. -Thoracic aorta within the visualized thoracic aortic-branches in the [id number] is unremarkable. Extracardiac Structures No significant extra-cardiac findings. Note, however, that this study is focused on the cardiac findings. IMPRESSION -Suboptimal image quality due to motion in the setting of irregular heart rhythm. -Presence of coronary calcification with an Agatston score = 42 using the AJ-130 method. -The observed calcium score of 42 is at 72nd percentile for subjects of the same age, sex, and race/ethnicity. -No evidence of significant flow-limiting atherosclerosis of the coronary arteries. -CAD-RADS 1. Management recommendations per ACC/AHA guidelines*, as clinically appropriate. *Recommendations: CAD RADS 0: Reassurance. Consider non-atherosclerotic causes of chest pain. CAD RADS 1: Consider non-atherosclerotic causes of chest pain. Consider preventive therapy and risk factor modification. CAD RADS 2: Consider non-atherosclerotic causes of chest pain. Consider preventive therapy and risk factor modification, particularly for patients with nonobstructive plaque in multiple segments. CAD RADS 3: Consider further functional testing. Consider symptom-guided anti-ischemic and preventive pharmacotherapy as well as risk factor modification per published guideline statements. CAD RADS 4A: Consider further functional testing or invasive coronary angiography with revascularization per published guideline statements. Consider symptom-guided anti-ischemic and preventive pharmacotherapy as well as risk factor modification per published guideline statements. CAD RADS 4B: Invasive coronary angiography recommended with revascularization per published guideline statements. Consider symptom-guided anti-ischemic and preventive pharmacotherapy as well as risk factor modification per published guideline statements. CAD RADS 5: Consider invasive angiography and/or viability assessment with revascularization per published guideline statements. Consider symptom-guided anti-ischemic and preventive pharmacotherapy as well as risk factor modification per published guideline statements. CRITICAL RESULT None COMMUNICATION Per this written report The coronary and cardiac findings of this CCTA were reviewed, reported, and signed by Tony Robison MD (Rickshaw Driver) Conclusion Electronically signed by : Chasidy Robison MD 08/29/2023 11:56:17
[2023-08-24] MEDS: IVABRADINE HCL 7.5MG TABLET *IVABRADINE+METOPROLOL REGIMINE 15 MG PO (12:21)
[2023-08-24] MEDS: METOPROLOL TARTRATE 50MG TABLET *IVABRADINE+METOPROLOL REGIMINE 75 MG PO (12:21)
[2023-08-24 12:30] LABS: Chloride 105 mmol/L (98-107); Potassium 3.7 mmoL/L (3.5-5.1); Sodium 139 mmol/L (136-145)
[2023-08-24 12:33] LABS: Anion Gap 5.7 mEq/L (5-15); Blood Urea Nitrogen 14 mg/dl (7-17); Calcium 8.9 mg/dl (8.4-10.2); Carbon Dioxide 32 mmol/L (22.0-30.0); Creatinine Clearance Estimated 36 mL/min (50-200); Estimated Glomerular Filt Rate 84 ml/min (>60); GFR (African American) 102 ML/MIN (>60); Glucose 94 mg/dl (74-100)
[2023-08-24] MEDS: NITROGLYCERIN 0.4MG SL TABLET 0.800000000000000044 MG SL (13:29)
[2023-08-24] MEDS: SODIUM CHLORIDE 0.9% 10ML SYR (RAD ONLY) 10 ML IV (14:10)
[2023-08-24] MEDS: IOPAMIDOL-370 (76%);100ML BOTTLE 85 ML IV (14:10)
[2023-08-24] MEDS: 0.9 % SODIUM CHLORIDE 50 ML VIAL IV (14:10)
== END 2023-08-24 14:08 | disposition home or self-care (01) ==
PROVIDERS: PCP Family Medicine; Visit Provider Physician Assistant
DX: I25.10 Atherosclerotic heart disease of native coronary artery without angina pectoris (principal); R06.00 Dyspnea, unspecified; R07.9 Chest pain, unspecified; R94.31 Abnormal electrocardiogram [ECG] [EKG]
CPT/HCPCS: 75571; 75574; 80048; Q9967

== ENCOUNTER 2023-09-18 19:30 | Outpatient (CLI) | payer MEDICARE, MEDICAID, SELFPAY ==
[2023-09-18 19:39] LABS: Chol/HDL Ratio 4.3 (1-3.5); Cholesterol 132 mg/dl (140-200); HDL Cholesterol 31 mg/dl (40-60); Triglycerides 100 mg/dl (30-150); VLDL Cholesterol 20 mg/dL (0-40)
[2023-09-18 19:52] LABS: Direct LDL Cholesterol 80.84 mg/dL (100-129)
[2023-09-18 20:14] LABS: Thyroid Stimulating Hormone 4.57 uIU/mL (0.465-4.68)
[2023-09-18 20:20] LABS: Vitamin B12 992 pg/mL (239-931)
[2023-09-18 20:21] LABS: Folate 7.35 ng/mL
== END 2023-09-18 23:59 ==
LOC: LAB.DROPOF 19:31
PROVIDERS: Physician Assistant; PCP Family Medicine; Visit Provider Family Medicine
DX: E78.5 Hyperlipidemia, unspecified (principal); D75.89 Other specified diseases of blood and blood-forming organs; E03.8 Other specified hypothyroidism
CPT/HCPCS: 80061; 82607; 82746; 84443

== ENCOUNTER 2023-10-05 14:52 | Outpatient (CLI) | payer MEDICARE, MEDICAID, SELFPAY | END 2023-10-05 23:59 | LOC: RT 14:53 | PROVIDERS: PCP Internal Medicine; Visit Provider Nurse Practitioner | DX: R00.0 Tachycardia, unspecified (principal) | CPT/HCPCS: 93225 ==

== ENCOUNTER 2023-10-09 12:39 | Outpatient (CLI) | payer MEDICARE, MEDICAID, SELFPAY | END 2023-10-09 23:59 | LOC: RT 12:40 | PROVIDERS: PCP Internal Medicine; Visit Provider Internal Medicine | DX: R00.0 Tachycardia, unspecified (principal) | CPT/HCPCS: 93270 ==

== ENCOUNTER 2025-02-10 10:48 | Outpatient (CLI) | payer MEDICARE, MEDICAID, SELFPAY ==
[2025-02-10 14:41] LABS: Hematocrit 45.4 % (37.0-47.0); Hemoglobin 14.7 g/dL (12.2-16.2); Immature Granulocytes % 0.1 %; Mean Corpuscular HGB Conc 32.4 g/dL (31.8-35.4); Mean Corpuscular Hemoglobin 29.8 pg (27.0-31.2); Mean Corpuscular Volume 92.1 fl (81-99); Nucleated Red Blood Cells % 0 %; Platelet Count 399 K/mm3 (142-424); Red Blood Count 4.93 M/mm3 (4.20-5.40); Red Cell Distribution Width-SD 51.4 fL; White Blood Count 8.2 K/mm3 (4.8-10.8)
[2025-02-10 15:14] LABS: Alanine Aminotransferase 10 U/L (12-78); Albumin Level 4.1 g/dl (3.5-5.0); Albumin/Globulin Ratio 1.5 (1.1-1.8); Alkaline Phosphatase 84 U/L (38-126); Anion Gap 16.1 mEq/L (5-15); Aspartate Amino Transferase 21 U/L (14-36); Bilirubin,Total 0.6 mg/dl (0.2-1.3); Blood Urea Nitrogen 14 mg/dl (7-17); Calcium 9.8 mg/dl (8.4-10.2); Carbon Dioxide 31 mmol/L (22.0-30.0); Chloride 99 mmol/L (98-107); Cholesterol 151 mg/dl (140-200); Creatinine,Serum 0.80 mg/dl (0.52-1.04); Estimated Glomerular Filt Rate 72 ml/min (>60); GFR (African American) 87 ML/MIN (>60); Globulin 2.7 g/dL (1.3-3.2); Glucose 114 mg/dl (74-100); HDL Cholesterol 64 mg/dl (40-60); Potassium 4.1 mmoL/L (3.5-5.1); Sodium 142 mmol/L (136-145); Total Protein,Serum 6.8 g/dl (6.3-8.2); Triglycerides 99 mg/dl (30-150)
[2025-02-10 15:44] LABS: Thyroid Stimulating Hormone < 0.02 uIU/mL (0.465-4.68)
--- OUTSIDE RECORDS SUMMARY | 2025-02-11 13:26 | XMS_ITS | Data Portability ---
Author Organization [place] - [facility] - [place] & [place] [facility] ADMIN Address [address] [place] [address] Care Team Providers Care Purchasing Analyst Name Role Phone TOSHIA FROST Primary Care Provider Assessment Encounter Date Assessment Date Assessment LastModified by Organization Details LastModified Time 12/20/2024 12/20/2024 1. 64 year old female with multiple risk factors for coronary artery presented with shortness of breath and chest discomfort, EKG inferior infarct, trop went up to more than 400. started on BB, ASA, Statin, Plavix, echo pending. Likely NSTEMI. will start heparin drip. I had a lengthy discussion with the patient about the management of her NSTEMI, she agreed to start medical treatment and transfer to [facility]. 2. COPD exacerbation, responded well to respirator treatment. 3. Hypertension controlled. 4. Dyslipidemia start statin. 5. Chronic smoker, quit recently 6. Diabetes, follow up A1c. [email or web address] Not available 12/20/2024 09:50:33 Plan of Treatment Reminders Order Date Submit Date Provider Last Modified By Organization Details Last Modified Time Details Appointments OV EST 15 2024 10:45A Ochoa Walls MD Not available Not available Not available Lab None recorded. Referral pulmonolo gist referral 2024 025 BLANCA Lainez MD, [address], [place], [address], 01/17/2025 04:15:01 Procedures None recorded. Surgeries None recorded. Imaging electroca rdiogram 2024 [address], [place], [address], 12/24/2024 08:48:13 US, echocardi ogram, transthor acic, complete, w/ color flow - Please schedule late February. 2024 025 [facility], [address], [place], [address], 02/10/2025 08:41:07 Medication Orders None recorded. Patient TargetsNo targets recorded. Patient Instructions Encounter Date Encounter Id Patient Instructions Last Modified By Organization Details Last Modified Time 12/20/2024 [id number] cardiac rehabilitation* BLANCA Not available 01/02/2025 04:11:28 Reason for Referral Physical Science Professor Referral for H istory of chronic obstructive airway disease Referring Physician: Sejal Walls, Cardiovascular Disease, Encounter Date: 12/20/2024 Results Created Date Observation Date Name Description Value Unit Range Abnormal Flag Note LastModifiedBy Organization Detail LastModifiedTime 12/21/19 25 12/24/2024 elect rocar diogr am No observ ation record ed. [address], [place], [address], 12/24/2024 08:48:23 12/25/19 25 12/20/2024 elect rocar diogr am No observ ation record ed. [address], [place], [address], 12/24/2024 08:48:14 01/02/20 25 12/06/[address] ment for coron ashley angio graph y with left heart logan teriz ation inclu ding intra proce dural injec tion( s) for left ventr iculo graph y w/ logan ter place ment in bypas s graft (s) (PROC ) No observ ation record ed. [email or web address] Not Available 2024 09:49:08 Result Notes None recorded. Medical Equipment None Reported. Medications Name Sig Start Date Stop Date Status Note LastModified by Organization Details LastModified Time amoxicillin 500 mg capsule TAKE ONE CAPSULE BY MOUTH TWICE DAILY FOR 10 DAYS 12/20 completed Not Available Not Available Not Available ipratropium 0.5 mg-albutero l 3 mg (2.5 mg base)/3 mL nebulizatio n soln INHALE CONTENTS OF 1 VIAL VIA NEBULIZER 4 TIMES A DAY NEEDED FOR SHORTNESS OF BREATH 12/20 completed Not Available Not Available Not Available albuterol sulfate 2.5 mg/3 mL (0.083 %) solution for nebulizatio n TAKE 3 ML (2.5 MG TOTAL) BY NEBULIZAT ION EVERY 6 (SIX) HOURS- RESPIRATO RY USE ONLY 12/20 completed Not Available Not Available Not Available azithromyci n 250 mg tablet TAKE 2 TABLETS BY MOUTH ON DAY 1, AND THEN TAKE 1 TABLET BY MOUTH ONCE A DAY ON DAY 2 THROUGH DAY 5 12/20 completed Not Available Not Available Not Available prednisone 20 mg tablet TAKE 2 TABLETS BY MOUTH EVERY DAY 12/20 completed Not Available Not Available Not Available aspirin 81 mg tablet,arnav yed release TAKE 1 TABLET BY MOUTH DAILY active Not Available Not Available No t Available spironolact one 25 mg tablet TAKE 1/2 TABLET BY MOUTH ONCE DAILY active Not Available Not Available No t Available citalopram 20 mg tablet TAKE 1 TABLET BY MOUTH EVERY DAY active Not Available Not Available No t Available levothyroxi ne 125 mcg tablet TAKE 1 TABLET BY MOUTH DAILY active Not Available Not Available No t Available omeprazole 20 mg capsule,del ayed release TAKE 1 CAPSULE BY MOUTH DAILY active Not Available Not Available No t Available furosemide 20 mg tablet TAKE 1/2 TABLET BY MOUTH ONCE DAILY active Not Available Not Available No t Available metoprolol succinate ER 25 mg tablet,exte nded release 24 hr TAKE 1 TABLET BY MOUTH EVERY DAY active Not Available Not Available No t Available methylpredn isolone 4 mg tablets in a dose pack TAKE DIRECTED PER PACKAGE direction s 12/20 completed Not Available Not Available Not Available albuterol sulfate HFA 90 mcg/actuati on aerosol inhaler INHALE 2 PUFFS 4 TIMES A DAY NEEDED FOR WHEEZING 12/20 completed Not Available Not Available Not Available doxycycline hyclate 100 mg tablet TAKE 1 TABLET BY MOUTH TWICE A DAY FOR 10 DAYS 12/20 completed Not Available Not Available Not Available amoxicillin 875 mg-potharshau m clavulanate 125 mg tablet TAKE 1 TABLET BY MOUTH EVERY 12 HOURS FOR 10 DAYS 12/20 completed Not Available Not Available Not Available azithromyci n 500 mg tablet TAKE 1 TABLET BY MOUTH ONCE DAILY 12/20 completed Not Available Not Available Not Available rosuvastati n 10 mg tablet TAKE 1 TABLET BY MOUTH ONCE DAILY active Not Available Not Available No t Available Entresto 24 mg-26 mg tablet TAKE 1 TABLET BY MOUTH TWICE A DAY active Not Available Not Available No t Available Trelegy Ellipta 100 mcg-62.5 mcg-25 mcg powder for inhalation TAKE 1 PUFF ONCE DAILY 12/20 completed Not Available Not Available Not Available Vitals Date Recorded Body weight Body mass index (BMI) Body height Heart rate Systolic And Diastolic Provider Name and Address Organization Details Last Updated DateTime 12/20/2024 5170.95 g 2.2 kg/m2 152.4 cm 68 /min 125/62 mm[Hg] [facility] [place] 12/20/2024 09:44:39 Social History None recorded. Functional Status None recorded. Mental Status None recorded. Family History Nothing Reported. Medical History No medical history recorded. Gynecological HistoryNo gynecological history recorded. Obstetrics History GPAL:G 0 P 0 0 0 0 Past Encounters Encounter ID Performer Location Encounter Start Date Encounter Closed Date Diagnosis/Indication Diagnosis SNOMED-CT Code Diagnosis ICD10 Code Diagnosis Note [id number] Sejal Walls MD [address] [place] [address] 12/20/2024 09:11:59 12/20/2024 10:05:28 Chronic systolic heart failure 477911036 I50.22 64-year-ol d female with signs and symptoms of congestive heart failure. Left heart catheteriz ation showed mild coronary artery disease placed on medical treatment. Clinically patient is euvolemic. Follow up echocardio gram. Continue medical treatment. She is on aspirin statin beta odalis Entresto and Lasix And Aldactone. History of chronic obstructive airway disease 580726166 Z87.09 history of COPD on home oxygen. Recommend pulmonary evaluation and follow up. Essential hypertension 93282593 I10 Controlled continue medication s. Dyslipidemia 861574415 E 78.5 On statin follow up fasting lipid profile. Type 2 sabrina betes mellitus 83402565 E11.9 Follow up hemoglobin A1c. Cigarette smoker 3532993 7 F17.210 Strongly encouraged the patient to quit smoking. I had a lengthy discussion with the patient regarding quitting smoking and available measuremen t to help patient quit smoking including support groups nicotine patches or medication like Chantix. Health Concerns Section Related Observation LastModified by Organization Detai ls LastModified Time None Recorded Concern Status LastModified by Organization Details LastModified Time None Recorded Advance Directives Directive None Recorded Payers Insurance Date Sequence Insurance Name Policy Number Policy Nash Covered Member ID Nash Member ID Guarantor Name 12/09/2024 1 [place] Priya L Masoud [id number] Priya L Masoud 12/09/2024 1 [place] [id number] Priya L Masoud [id number] 1 Priya L Masoud 12/26/2024 2 [employer] [place] (MEDICAID HMO) Priya L Masoud [id number] Priya L Masoud 12/09/2024 1 [employer] [place] ([place]MO[place] Priya L Masoud [id number] Priya L Masoud Notes Date Note Type Note Provider Name and Address Organization Details Recorded Time 12/20/2024 text/html 64 year old gustavo dominguez with past medical history significant for hypertension, diabetes, chronic smoker, COPD, on inhalers and home oxygen. was recently admitted to the hospital through the ER after she presented with not able to breath and found to have elevated trop and diagnosed with NSTEMI. Patient underwent left heart catheterization on 12/06/2024 and showed mild coronary artery disease with 30% mid RCA stenosis. Patient was placed on medical treatment.Patient came today for regular cardiovascular follow up after the left heart catheterization was done. She has been doing well no recurrence of her chest discomfort or shortness of breath likely her shortness of breath was secondary to her COPD exacerbation which improved on respiratory treatment. She will follow up with the Pulmonary. No dizziness falling down or passing out no orthopnea PND or leg swelling. No bleeding anywhere she has a chronic productive cough. We will continue optimizing her medical treatment and follow up. [facility] 12/06/24Mid RCA 30%. EK12/05/24 sinus tachycardia. HR 114 bpm. inferior infarct age undetermined. abnormal EKG. EK12/20/24 sinus bradycardia. HR 59 bpm. T wave abnormality consider inferolateral ischemia. abnormal EKG. follow up hospital nstemi cathed no significant disease.please send refil of chf medicationsno leg swelling. Sejal Walls MD [address] [place] [address], [phone], [facility] & [place] 12/26/2024 11:50:53 OBGyn Episode No OBEpisode recorded.
--- OUTSIDE RECORDS SUMMARY | 2025-02-11 13:26 | XMS_ITS | Clinical Summary ---
Author Organization [employer] ([place], [place], [place], [place]) Address [address] [place] [address] Care Team Providers Care Land Acquisition Analyst Name Role Phone Unavailable Primary Care Provider Unavailabl e Allergies Active Allergy Reactions Criticality Noted Date Comments Codeine Rash Low 05/19/2023 Medications AZITHROmycin (ZITHROMAX) 250 MG tablet Take 1 tablet (250 mg total) by mouth daily Take by mouth as directed.. 4 tablet 05/21/2023 Active cefdinir (OMNICEF) 300 MG capsule Take 1 capsule (300 mg total) by mouth every 12 (twelve) hours. 8 capsule 05/21/2023 Active Active Problems Problem Noted Date Diagnosed Date COPD with acute exacerbation 05/19/2023 Immunizations Name Administration Dates Next Due INFLUENZA (FLULAVAL, FLUARIX )_0.5mL QIV_IM (06mo+)([id number]) 05/20/2023() Social History Tobacco Use Types Packs/Day Years Used Date Smoking Tobacco: Every Day Cigarettes Smokeless Tobacco: Never Tobacco Cessation:Ready to Q uit: Not Asked; Counseling Given: Not Answered Alcohol Use Standard Drinks/Week Comments Never 0 (1 standard drink = 0.6 oz pur e alcohol) PRAPARE - Transportation Answer Date Re corded In the past 12 months, has l ack of transportation kept you from medical appointments or from getting medications? No 05/19/2023 Lack of Transportation (Non-Medical) Not on file 05/19/2023 Food Insecurity Answer Date Recorded Food run out past 12 months Not on file 07/31 Food did not last past 12 months Not on file 08/18/2023 Employment Answer Date Recorded Help finding and keeping a job Not on file 0 08/18/2023 Family and Community Support Answer Maximiliano e Recorded Help with Day to Day Activities Not on file 08/18/2023 Feeling Lonely or Isolated Not on file 08/18 Educational Attainment Answer Date Parth rded Speak language other than Estonian at home Not on file 08/18/2023 Want help with school or training Not on file 08/18/2023 Substance Use Answer Date Recorded Used prescription meds for non-medical reasons N ot on file 08/18/2023 Used illegal drugs past 12 months Not on file 08/18/2023 Comments Unknown Sex and Gender Information Value Date Recorded Sex Assigned at Not on file Legal Sex Female 4:40 PM CDT Gender Identity Not on file Sexual Orientation Not on file Last Filed Vital Signs Vital Sign Reading Time Taken Comments Blood Pressure 117/68 05/20/2023 3:47 PM EDT Pulse 88 05/20/2023 3:47 PM EDT Temperature 36.8 C (98.3 F) 05/20/2023 3:47 PM EDT Respiratory Rate 20 05/20/2023 3:47 PM EDT Oxygen Saturation 92% 05/20/2023 3:47 PM EDT Inhaled Oxygen Concentration 36% 05/20/2023 1 :15 PM EDT Weight 41.7 kg (91 lb 14.4 oz) 05/20/2023 6:00 A M EDT Height 152.4 cm (5') 05/19/2023 3:19 PM EDT Body Mass Index 17.95 05/19/2023 3:19 PM EDT Plan of Treatment Health Maintenance Due Date Last Done Comments CT Colonography 1958 Colonoscopy 1958 Colorectal Cancer Screening 1958 DXA SCAN 1958 FOBT/FIT 1958 Fit-DNA (Cologuard) 1958 Sigmoidoscopy 1958 Depression Screening (12+) 1970 Hepatitis C Screening 1976 DTAP/TDAP/TD VACCINES (1 - Tdap) 1977 Breast Cancer Screening 1998 Shingles Vaccine (Zoster) (1 of 2) 2008 Pneumococcal 50+ years (2 of 2 - PPSV23) 07/18/2016 05/23/2016 Respiratory Syncytial Virus (RSV) Adult or (1 - Risk 60-74 years 1-dose series) 2018 COVID-19 VACCINE ( season) 2024, 11/24/2020 Tobacco Cessation Counseling and Screening (12+) 05/19/2024 05/19/2023 Falls Risk Screening 07/31/2024 Influenza Vaccine (#1) 2025 [facility] Advance Directives For more information, please contact: [phone] * DNR - Limited Additional Intervention (Latest Code Status on File) Date Activated Date Inactivated Comments 05/19/2023 5:08 PM 05/20/2023 6:48 PM If no puls e: No intervention If has pulse: No Intubation. May use BiPAP/CPAP Call [facility]
--- OUTSIDE RECORDS SUMMARY | 2025-02-11 13:26 | XMS_ITS | Referral Summary ---
Author Organization [employer] ([place], [place], [place], [place]) Address [address] [place] [address] Care Team Providers Care Mobile Pet Groomer Name Role Phone Unavailable Primary Care Provider [...] Next Due INFLUENZA (FLULAVAL, FLUARIX )_0.5mL QIV_IM (06mo+)([id number]) 05/20/2023() Social History Tobacco Use Types Packs/Day [...] Date Parth rded Speak language other than Ugandan at home Not on file 08/18/2023 Want [...] 05/19/2023 3:19 PM EDT Plan of Treatment Not on file [facility] Advance Directives For more information, please contact: [phone] * DNR - Limited Additional Intervention (Latest Code Status on File) Date Activated Date Inactivated Comments 05/19/2023 5:08 PM 05/20/2023 6:48 PM If no puls e: No intervention If has pulse: No Intubation. May use BiPAP/CPAP Call [facility]
--- OUTSIDE RECORDS SUMMARY | 2025-02-11 13:26 | XMS_ITS | Continuity of Care Document ---
Author Organization [facility] Address [address] [place] [address] Care Team Providers Care Track Laying Machine Operator Name Role Phone TOSHIA FROST Primary Care Provider [phone] Assessment Encounter Date Assessment Date Assessment LastModified [...] to start medical treatment and transfer to [facility] for [facility]. 2. COPD exacerbation, responded well to respirator [...] Lainez MD, [address], [address], [place], [address], 01/17/2025 04:15:01 Procedures None recorded. Surgeries None recorded. Imaging electroca rdiogram 2024 025 [facility], [address] [place] [address] [address], [place], [address], 12/24/2024 08:48:13 US, echocardi ogram, transthor acic, complete, w/ color flow - Please schedule late February. 2024 025 [facility], [address], [place], [address], 02/10/2025 08:41:07 Medication Orders None recorded. Patient TargetsNo targets recorded. Patient Instructions Encounter Date Encounter Id Patient Instructions Last Modified By Organization Details Last Modified Time 12/20/2024 [id number] cardiac rehabilitation* BLANCA Not available 01/02/2025 04:11:28 Reason for Referral Physiognomist Referral for H istory of chronic obstructive airway disease Referring Physician: Sejal Walls, Cardiovascular Disease, Encounter Date: 12/20/2024 Results Created Date Observation Date Name Description Value Unit Range Abnormal Flag Note LastModifiedBy Organization Detail LastModifiedTime 12/21/19 25 12/24/2024 elect rocar diogr am No observ ation record ed. [address], [place], [address], 12/24/2024 08:48:23 12/25/19 25 12/20/2024 elect rocidalia diogr am No observ ation record ed. [address], [place], [address], 12/24/2024 08:48:14 01/02/20 25 12/06/[address] [...] Available Not Available Not Available amoxicillin 875 mg-potassiu m clavulanate 125 mg tablet TAKE 1 [...] cm 68 /min 125/62 mm[Hg] Olga Reyes [facility] & [place] 12/20/2024 09:44:39 Social History None recorded. Functional Status None recorded. Mental Status None recorded. Family History Nothing Reported. Medical History No medical history recorded. Gynecological HistoryNo gynecological history recorded. Obstetrics History GPAL:G 0 P 0 0 0 0 Past Encounters Encounter ID Performer Location Encounter Start Date Encounter Closed Date Diagnosis/Indication Diagnosis SNOMED-CT Code Diagnosis ICD10 Code Diagnosis Note [id number] Sejal Walls MD [address] [place] [address] 12/20/2024 09:11:59 12/20/2024 10:05:28 Chronic systolic heart failure 848075694 I50.22 64-year-ol d female with signs and symptoms of congestive heart failure. Left heart catheteriz ation showed mild coronary artery disease placed on medical treatment. Clinically patient is euvolemic. Follow up echocardio gram. Continue medical treatment. She is on aspirin statin beta odalis Entresto and Lasix And Aldactone. History of chronic obstructive airway disease 397463941 Z87.09 history of COPD on home oxygen. Recommend pulmonary evaluation and follow up. Essential hypertension 96015639 I10 Controlled continue medication s. Dyslipidemia 078195099 E 78.5 On statin follow up fasting lipid profile. Type 2 sabrina betes mellitus 84018585 E11.9 Follow up hemoglobin A1c. Cigarette smoker 8163031 7 F17.210 Strongly encouraged the patient to quit smoking. I had a lengthy discussion with the patient regarding quitting smoking and available measuremen t to help patient quit smoking including support groups nicotine patches or medication like Chantix. Health Concerns Section Related Observation LastModified by Organization Detai ls LastModified Time None Recorded Concern Status LastModified by Organization Details LastModified Time None Recorded Payers Encounter Date Sequence Insurance Name Policy Number Policy Nash Covered Member ID Nash Member ID Guarantor Name 12/20/2024 1 MEDICARE[employer] (MEDICARE) Priya Revelesderick [id number] Priya Solomon Masoud 12/20/2024 2 [employer] (MEDICAID HMO) Priya Solomon Masoud [id number] Priya Neha Masoud Notes Date Note Type Note Provider [...] optimizing her medical treatment and follow up. [facility] 12/06/24Mid RCA 30%. EK12/05/24 sinus tachycardia. HR 114 bpm. inferior infarct age undetermined. abnormal EKG. EK12/20/24 sinus bradycardia. HR 59 bpm. T wave abnormality consider inferolateral ischemia. abnormal EKG. follow up hospital nstemi cathed no significant disease.please send refil of chf medicationsno leg swelling. Sejal Walls MD [address] [facility], [place], [address], [facility] & [place] 12/26/2024 11:50:53 OBGyn Episode No OBEpisode recorded.
== END 2025-02-10 23:59 | disposition home or self-care (01) ==
LOC: LAB.DROPOF 02-11 13:16
PROVIDERS: PCP Family Medicine; Visit Provider Family Medicine
DX: I42.9 Cardiomyopathy, unspecified (principal); E07.9 Disorder of thyroid, unspecified; D75.89 Other specified diseases of blood and blood-forming organs; R07.9 Chest pain, unspecified
CPT/HCPCS: 80053; 80061; 84443; 85025

== ENCOUNTER 2025-05-20 14:05 | Observation (INO) | payer MEDICARE, MEDICAID, SELFPAY ==
[2025-05-20] VITALS (20 sets, daily range): BP systolic 87–127; BP diastolic 46–76; PULSE 62–103; RESP 14–25; TEMP 35.9–36.9; O2SAT 90–99; BMI 20.1
--- NOTE | 2025-05-20 14:09 | ECG_ITS ---
APPROVED REPORT Exam: Resting ECG HR:97 bpm ECG Measurements Heart Rate 97 AXES OR 152 P 83 QRSd 77 QRS 56 QT 332 T -90 QTc 387 Conclusion SINUS RHYTHM POSSIBLE RIGHT ATRIAL ENLARGEMENT [0.25mV P-WAVE] LOW QRS VOLTAGE IN PRECORDIAL LEADS [QRS DEFLECTION < 1.0 mV IN CHEST LEADS] MODERATE T-WAVE ABNORMALITY, CONSIDER LATERAL ISCHEMIA [-0.1+ mV T-WAVE IN I/aVL/V5/V6] MODERATE T-WAVE ABNORMALITY, CONSIDER INFERIOR ISCHEMIA [-0.1+ mV T-WAVE IN II/aVF] ABNORMAL ECG UNCONFIRMED REPORT Electronically signed by : FRANCIA HEBERT, 05/22/2025 06:48:06
--- NOTE | 2025-05-20 14:12 | IR_ITS ---
APPROVED REPORT Patient Location: [employer] First Officer: BINTA Will RT (R) PROCEDURES 1. Left heart catheterization 2. Selective coronary arteriography 3. Left ventriculography INDICATION 1. Unstable angina, 2. Abnormal EKG SCAI INDICATION Patient presented as a 64-year-old white female with increasing shortness of breath. Profound increase in shortness of breath and abnormal EKG findings with diffuse ST depression inferior and lateral with slight elevation lateral. Secondary to this and the shortness of breath and back pain after CT was obtained to make sure no aortic issues were going on she was brought directly to the cardiac catheterization laboratory Informed consent was obtained prior to the procedure. COMPLICATIONS none Estimated Blood Loss: less than 10ml TECHNIQUE One percent lidocaine used to anesthetize the right groin. Right common femoral access was obtained. 4 [place] Islander sheath. JL 4 and JR 4 catheters were used. Accessed via the Seldinger technique. ANGIOGRAPHIC RESULTS The left main artery Angiographically normal The left anterior descending artery Angiographically normal with normal flow to the large first diagonal branch with normal flow into the mid and distal vessel The circumflex artery Moderate to large in size and angiographically normal with normal flow to the obtuse marginal branches into the distal circumflex The right coronary artery Large and dominant and angiographically normal. Normal flow into the posterior descending artery and posterior lateral branch The PITT ventriculogram reveals Normal left ventricular systolic function with an ejection fraction of 60 to 65% The left ventricular end-diastolic pressure 10 Right, retrograde femoral arterial performed. She placed a right common femoral artery. Angio-Seal device deployed without difficulty IMPRESSION 1. Normal coronary arteries 2. Normal left ventricular systolic function 3. Normal left ventricular end-diastolic pressure 4. Successful placement of an Angio-Seal device in the right common femoral artery PLAN 1. Patient will continue with medical therapy. This may be all respiratory in nature. She does have ST segment depression inferior and lateral. She has tortuous coronary arteries and she may be secondary to hypertension. Left ventricular end-diastolic pressure normal. Coronaries normal. Pressures in the heart normal. Left ventricular systolic function normal. Follow-up in cardiology clinic in 1 to 2 weeks for further evaluation and treatment. No intervention needed at this time. Echocardiogram will be obtained Electronically signed by : Les Lucero MD 05/20/2025 16:29:55
--- NOTE | 2025-05-20 14:14 | PC.NURSE ---
DR BARRETO SPEAKING WITH DR GRANGER
--- NOTE | 2025-05-20 14:15 | CT_ITS ---
FINAL REPORT TECHNIQUE: Thin section axial CT with contrast with multiplanar reconstruction This study was performed with techniques to keep radiation doses as low as reasonably achievable, (ALARA). Individualized dose reduction techniques using automated exposure control or adjustment of mA and/or kV according to the patient''s size were employed. CLINICAL HISTORY: Back pain, EKG changes COMPARISON: 10/18/2022 FINDINGS: Pulmonary vessels enhance in normal fashion without evidence of embolism. Thoracic aorta shows no dissection or aneurysm. There is emphysematous change without edema. A small focus of right middle lobe scarring is stable. There is no significant pleural effusion. There is no significant pericardial effusion. No mediastinal or hilar adenopathy is present. Limited images of the upper abdomen show a nonspecific enhancing lesion in the splenic hilar region measuring 21 mm. This was not evaluated on the prior CT chest due to lack of contrast. Hemangioma is favored. IMPRESSION: No evidence of pulmonary embolism Incidental splenic mass. Recommend 2 to 3-month abdomen CT follow-up with IV contrast. Reviewed, Interpreted and Dictated by Philip Lackey MD Transcribed by Jaja Meléndez Authenticated and [facility]
--- NOTE | 2025-05-20 14:18 | PC.NURSE ---
RADIOLOGY NOTIFIED OF CTA, STAT
--- NOTE | 2025-05-20 14:19 | [facility].EDCP ---
Discharge Plan Disposition Patient Disposition: Still a Patient Condition: Good Clinical Impressions Clinical Impression: STEMI (ST elevation myocardial infarction) Discharge ED Provider: Cuauhtemoc Varner HPI General Chief Complaint: Shortness of Breath/Dyspnea Stated Complaint: BACK PAIN Time Seen by Provider: 05/20/25 14:06 History of Present Illness HPI narrative: Priya Meredith is a 64-year-old female with past medical history of MS, COPD who presents to the emergency department from primary care office for concern for STEMI. Per patient, she has had chronic back pain for many years that has persisted. She states that over the last 2 to 3 days, she has been more short of breath than normal. She denies any chest pain. She states that she last had a heart attack in August of this year. She was seen at her primary care doctor where she was mildly hypoxic to 85% received a breathing treatment and then had an EKG that was sent to Dr. Kidd with cardiology who stated that this was a subacute STEMI. She came to the emergency department and was STEMI alerted. Cardiology was at the bedside time patient's arrival and recommended a CTA of the chest to rule out dissection and then [employer]st afterwards as long as there is no dissection. Related Data Home Medications ?Medication ?Instructions ?Recorded ?Confirmed albuterol sulfate 90 mcg/actuation 2 puff inhalation Q4HP PRN 05/20/25 05/20/25 aerosol inhaler Shortness Of Breath citalopram 20 mg tablet 20 mg PO DAILY 05/20/25 05/20/25 omeprazole 20 mg capsule,delayed 20 mg PO DAILY 05/20/25 05/20/25 release rosuvastatin 10 mg tablet 10 mg PO DAILY 05/20/25 05/20/25 spironolactone 25 mg tablet 25 mg PO DAILY 05/20/25 05/20/25 Previous Rx's ?Medication ?Instructions ?Recorded levothyroxine 125 mcg tablet 125 mcg PO DAILY #90 tabs 01/27/25 aspirin 81 mg capsule 81 mg PO DAILY #90 caps 02/10/25 furosemide 20 mg tablet (Lasix) 10 mg (1/2 x 20 mg) PO DAILY #30 02/10/25 tabs metoprolol succinate 25 mg 25 mg PO DAILY #90 tabs 02/10/25 tablet,extended release 24 hr sacubitril 24 mg-valsartan 26 mg 1 tab PO BID #180 tabs 02/10/25 tablet (Entresto) Allergies Allergy/AdvReac Type Severity Reaction Status Date / Time codeine AdvReac Mild Other Verified 05/20/25 13:38 [facility] Disclaimer: The information contained in this section may have been updated after the patient was seen, as this information can be updated by other users. Medical History URI (upper respiratory infection) Acute dyspnea Heart attack COPD (chronic obstructive pulmonary disease) Coronary artery calcification seen on CT scan Abnormal electrocardiogram [ECG] [EKG] Bronchitis Surgical History H/O tubal ligation Family History (Updated 05/20/25 @ 13:52 by SELVIN Jimenez) Father Cancer Mother Heart attack Social History Smoking Status: Former smoker alcohol intake: never substance use type: marijuana current occupational status: other Travel in the last 8 weeks?: None household members: family housing: apartment Other Medical History Have you received the Flu Vaccine for this season: No Have you received the Pneumonia Vaccine: No ROS Obtained: Yes Systems reviewed as appropriate & no additional complaints except as documented Physical Exam General General appearance: alert and in no apparent distress Head Head exam: atraumatic Eye Eye exam: Present normal appearance ENT ENT exam: Present normal external ear exam Neck Neck exam: Present full ROM Chest Chest inspection: Present symmetric chest wall rise Respiratory Respiratory exam: Present normal lung sounds bilaterally; Absent respiratory distress Cardiovascular Cardiovascular exam: Present regular rate and normal rhythm Abdominal Exam Abdominal exam: Present soft; Absent tenderness or guarding Extremities Exam Extremities exam: Present normal inspection Back Exam Back exam: Present normal inspection Neurological Exam Neurological exam: Present alert and oriented X3 Psychiatric Psychiatric exam: Present normal affect Skin Skin exam: Present warm and dry HEART Score HEART Score HEART Score assessment performed?: Yes HEART Score: 7 Critical Care Critical Care Time Critical Care Time: Yes Attestation: On 05/20/25, the high probability of a clinically significant, sudden or life threatening deterioration of the following system(s) required my full and direct attention, intervention and personal management. The time I documented below is in addition to time spent performing reported procedures but includes the following listed in this critical care notation. Total Time Total Critical Care Time: 35 Medical Decision Making Raudel Inquiry Pt receiving controlled substance: No Vital Signs Vital Signs: 05/20/25 14:21 05/20/25 14:30 05/20/25 15:00 Temperature 98.0 F Temperature Source Oral Pulse Rate 92 H Pulse Rate [Left Radial] 103 H Respiratory Rate 20 25 H Blood Pressure 112/61 122/58 L Blood Pressure [Right Arm] 126/76 Blood Pressure Mean [Right Arm] 92 Blood Pressure Source Blood Pressure Position 02 Sat by Pulse Oximetry 90 L 96 96 Oxygen Delivery Method Room Air Nasal Cannula Oxygen Flow Rate (LPM) 2 05/20/25 15:29 Temperature 98.0 F Temperature Source Oral Pulse Rate 93 H Pulse Rate [Left Radial] Respiratory Rate 20 Blood Pressure 122/58 L Blood Pressure [Right Arm] Blood Pressure Mean [Right Arm] Blood Pressure Source Automatic Cuff Blood Pressure Position Sitting 02 Sat by Pulse Oximetry Oxygen Delivery Method Room Air Oxygen Flow Rate (LPM) Lab Data Labs: Lab Results 05/20/25 14:10: WBC 14.4 H, RBC 4.37, Hgb 13.1, Hct 39.9, MCV 91.3, MCH 30.0, MCHC 32.8, RDW 15.9, Plt Count 562 H, MPV 9.4, Neut % (Auto) 80.5 H, Lymph % (Auto) 14.0, Holt % (Auto) 4.7, Eos % (Auto) 0.3, Baso % (Auto) 0.2, Neut # (Auto) 11.6 H, Lymph # (Auto) 2.0, Holt # (Auto) 0.7, Eos # (Auto) 0.0, Baso # (Auto) 0.0, PT 11.5, INR 1.04, APTT 29.3, Sodium 139, Potassium 3.3 L, Chloride 94 L, Carbon Dioxide 34 H, Anion Gap 14.3, BUN 16, Creatinine 0.80, Estimated Creat Clear 41, Estimated GFR 72, Est GFR ( Amer) 87, Glucose 150 H, Calcium 9.3, Total Bilirubin 0.4, AST 26, ALT 18, Alkaline Phosphatase 121, Troponin I 0.02, NT-Pro-B Natriuret Pep 1920 H, Total Protein 7.9, Albumin 4.0, Globulin 3.9 H, Albumin/Globulin Ratio 1.0 L, Lipase 29, HCV Ab JODIE w/Rflx PCR Qn Negative, HIV Ag/Ab Combo Qual Negative 05/20/25 14:15: VBG pH 7.31, VBG pCO2 62.0 H, VBG pO2 24.6 L, VBG HCO3 30.6 H, VBG Total CO2 32.5 H, VBG O2 Saturation 37.1 L, VBG Base Excess 4.3 H, VBG Lactic Acid 2.5 H 05/20/25 14:10 05/20/25 14:10 Response Orders (Tests/Meds): ED MEDICATIONS Generic Name Dose Route Start Last Admin Trade Name Freq PRN Reason Stop Dose Admin Acetaminophen 650 mg 05/20/25 17:33 Acetaminophen 325mg Tab PO 06/19/25 17:32 Q4HP PRN Fever or Mild Pain (1-3) Diazepam 5 mg 05/20/25 14:24 Diazepam 5mg Tablet PO 05/21/25 02:24 ONCE PRN Anxiety Enoxaparin Sodium 40 mg 05/21/25 09:00 Enoxaparin 40mg/0.4ml Syringe SUBCUT 06/20/25 08:59 DAILY RICARDO Fentanyl Citrate 50 mcg 05/20/25 14:24 05/20/25 16:23 Fentanyl 100mcg/2ml Vial IV 05/21/25 02:24 100 mcg Q3MINP PRN Administration Sedation Fentanyl Citrate 25 mcg 05/20/25 14:24 Fentanyl 100mcg/2ml Vial IV 05/21/25 02:24 Q3MINP PRN Sedation Flumazenil 0.2 mg 05/20/25 14:24 Flumazenil 0.1mg/Ml 5ml Vial IV 05/21/25 02:24 NEEDED PRN Sedation Heparin Sodium (Porcine) 5,000 unit 05/20/25 14:24 Heparin 1,000 Units/Ml 10ml Vial ([employer]st) IV 05/20/25 18:24 NEEDED PRN Emergency Box Sterile Process Tech Hydralazine HCl 20 mg 05/20/25 14:24 Hydralazine 20mg/Ml Vial IV 05/20/25 18:24 ONCE PRN sbp>160 Adenosine 180 mg/ Sodium 90 mls @ 252.288 mls/hr 05/20/25 14:24 Chloride IV 05/20/25 18:24 ONCE PRN fractional flow reserve 180 MCG/KG/MIN Adenosine 90 mg/ Sodium 90 mls @ 504.576 mls/hr 05/20/25 14:24 Chloride IV 05/20/25 18:24 ONCE PRN fractional flow reserve 180 MCG/KG/MIN Sodium Chloride 500 mls @ 25 mls/hr 05/20/25 14:30 05/20/25 16:25 Sod Chloride 0.9% 500ml Bag IV 05/21/25 14:24 Infused .Q20H RICARDO Infusion Iopamidol 50 ml 05/20/25 17:06 Iopamidol-370 (76%);100ml Bottle IV 05/20/25 17:07 ONCE ONE Labetalol HCl 20 mg 05/20/25 14:24 Labetalol 20mg/4ml Syringe IV 05/20/25 18:24 ONCE PRN sbp>160 Midazolam HCl 1 mg 05/20/25 14:24 Midazolam 2mg/2ml Vial IV 05/21/25 02:24 Q3MINP PRN Sedation Midazolam HCl 1 mg 05/20/25 14:24 05/20/25 16:23 Midazolam Hcl 1mg/Ml 5ml Vial IV 05/21/25 02:24 6 mg Q3MINP PRN Administration Sedation Naloxone HCl 0.4 mg 05/20/25 14:24 Naloxone 0.4mg/Ml Vial IV 05/21/25 02:24 Q5MINP PRN Decreased Respirations Nicotine 21 mg 05/20/25 17:33 Nicotine 21mg/24hr Patch TD 06/19/25 17:32 DAILYP PRN Nicotine Cravings Nitroglycerin 800 mcg 05/20/25 14:24 Nitroglycerin 800mcg/8ml Syr ([employer] Intelligence [employer]st) IA 05/20/25 18:24 NEEDED PRN Emergency Box [employer] Tech Ondansetron HCl 4 mg 05/20/25 14:24 Ondansetron 4mg/2ml Vial IV 05/21/25 02:24 NEEDED PRN Nausea Ondansetron HCl 4 mg 05/20/25 17:33 Ondansetron 4mg/2ml Vial IV 06/19/25 17:32 Q6HP PRN Nausea Promethazine HCl 25 mg 05/20/25 14:24 Promethazine Hcl 25mg/Ml 1ml Vial IV 05/21/25 02:24 NEEDED PRN Nausea And Vomiting Protamine Sulfate 50 mg 05/20/25 14:24 Protamine Sulfate 50mg/5ml Vial ([employer]st) IV 05/20/25 18:24 ONCE PRN act>200 Discontinued Medications Generic Name Dose Route Start Last Admin Trade Name Freq PRN Reason Stop Dose Admin Aspirin 325 mg 05/20/25 14:17 05/20/25 14:30 Aspirin 325mg Tablet PO 05/20/25 14:18 325 mg ONCE ONE Administration Diphenhydramine HCl 50 mg 05/20/25 14:24 05/20/25 15:47 Diphenhydramine 50mg/Ml Vial IV 05/20/25 14:25 50 mg ONCE ONE Administration Heparin Sodium/Sodium Chloride 3,000 unit 05/20/25 14:24 05/20/25 15:48 Heparin 1,000 Units/500ml Ns ([employer] Intelligence [employer]st) IV 05/20/25 14:25 3,000 unit ONCE ONE Administration Iopamidol 80 ml 05/20/25 14:23 05/20/25 14:24 Iopamidol-370 (76%);100ml Bottle IV 05/20/25 14:24 80 ml ONCE ONE Administration Lidocaine HCl 10 ml 05/20/25 14:24 05/20/25 15:47 Lidocaine 1% 10ml Mdv IJ 05/20/25 14:25 10 ml ONCE ONE Administration Lidocaine HCl 10 ml 05/20/25 14:24 Lidocaine 1% 5ml Pf Vial IJ 05/20/25 14:25 ONCE ONE Morphine Sulfate 4 mg 05/20/25 14:24 Morphine 4mg/Ml Syringe IV 05/20/25 14:25 ONCE ONE Sodium Chloride 10 ml 05/20/25 14:23 05/20/25 14:24 Sodium Chloride 0.9% 10ml Syr (Rad Only) IV 05/20/25 14:24 10 ml ONCE ONE Administration Sodium Chloride 25 ml 05/20/25 14:24 Sodium Chloride 0.9% 25ml Bag IV 05/20/25 14:25 ONCE ONE Verapamil HCl 2.5 mg 05/20/25 14:24 Verapamil 2.5mg/Ml 2ml Vial IV 05/20/25 14:25 ONCE ONE ORDERS Category Date Time Status Type and Screen Stat BBK 05/20/25 14:[address] angio chest - dissection Stat Cat Scan 05/20/25 14:15 Completed BNP [NT Pro Brain Natriuretic Pep.] Stat Lab 05/20/25 14:10 Completed CBC w/Auto Diff [Complete Blood Count Auto Diff] Stat Lab 05/20/25 14:10 Completed CMP [Comprehensive Metabolic Panel] Stat Lab 05/20/25 14:10 Completed HIV Combo Stat Lab 05/20/25 14:10 Completed Hepatitis C Ab Qual. W/ RFX Stat Lab 05/20/25 14:10 Completed Lipase Stat Lab 05/20/25 14:10 Completed PT INR [Prothrombin Time INR] Stat Lab 05/20/25 14:10 Completed PTT [Activated Partial Thrombo Time] Stat Lab 05/20/25 14:10 Completed Troponin I Q3H Lab 05/20/25 17:20 Received Troponin I Q3H Lab 05/20/25 20:30 Ordered Troponin I Stat Lab 05/20/25 14:10 Completed VBG [Venous Blood Gas] Stat RT 05/20/25 14:15 Completed CA echo doppler complete Stat Y 05/21/25 07:00 Ordered ECG Data Tracing #1: Attestation: I reviewed this ECG and interpreted as documented below: ECG Narrative: T wave inversions in leads II to III and aVF. Borderline ST elevations in V4, V5 and V6. After consultation with Dr. Kidd, determinants of subacute STEMI MDM Narrative Medical Decision Narrative: Priya Meredith is a 64-year-old female with past medical history of MS, COPD who presents to the emergency department from primary care office for concern for STEMI. Per patient, she has had chronic back pain for many years that has persisted. She states that over the last 2 to 3 days, she has been more short of breath than normal. She denies any chest pain. She states that she last had a heart attack in August of this year. She was seen at her primary care doctor where she was mildly hypoxic to 85% received a breathing treatment and then had an EKG that was sent to Dr. Kidd with cardiology who stated that this was a subacute STEMI. She came to the emergency department and was STEMI alerted. Cardiology was at the bedside time patient's arrival and recommended a CTA of the chest to rule out dissection and then [employer]st afterwards as long as there is no dissection. On arrival, patient is normotensive with blood pressure 126/76, mildly tachycardic with a heart rate of 103 bpm, afebrile, oxygen saturation 90% on room air but improved to 96% without intervention. Physical exam, stated above, revealed an overall well and nontoxic-appearing female in no distress. She is alert and answering questions appropriately. She is complaining of back pain. She is speaking in full sentences. Differential diagnosis includes, but is not limited to: STEMI, NSTEMI, aortic dissection, pulmonary embolism, COPD exacerbation, pneumonia, among others. The most morbid conditions were considered and workup was based on these. See EKG interpretation above. After consultation with Dr. Kidd, there is concern for subacute STEMI. Cardiology at bedside recommended obtaining CTA imaging of the chest prior to taking patient to [facility] [employer] to rule out aortic dissection/other pathology. I did discuss patient's case with Dr. Lucero with the cardiology team Who is currently human relations manager for STEMI, and he was in agreement to go to [employer] after CT chest confirmed no aortic dissection. Lab work at this time shows leukocytosis of 14.4 with neutrophilia, no anemia, platelets elevated at 562. No acidosis. pCO2 is elevated at 62 but is compensated with bicarb of 30.6 and her hyper Jessica appears chronic in nature. Mild elevation in lactic acid at 2.5. Mildly low potassium at 3.3 but electrolytes grossly unremarkable nonactionable. NT proBNP elevated at 1920, initial troponin 0.02, liver enzymes within normal limits. Lipase normal at 29. CT was interpreted by me personally prior to official radiology read. No evidence of aortic dissection. No pulmonary embolism. See final radiology report for further details. Given this, patient was then taken to [facility]. She remained stable throughout her emergency department visit.
--- NOTE | 2025-05-20 14:21 | PC.NURSE ---
PT TO CT
[2025-05-20 14:22] LABS: Hematocrit 39.9 % (37.0-47.0); Hemoglobin 13.1 g/dL (12.2-16.2); Immature Granulocytes % 0.3 %; Mean Corpuscular HGB Conc 32.8 g/dL (31.8-35.4); Mean Corpuscular Hemoglobin 30.0 pg (27.0-31.2); Mean Corpuscular Volume 91.3 fl (81-99); Nucleated Red Blood Cells % 0 %; Platelet Count 562 K/mm3 (142-424); Red Blood Count 4.37 M/mm3 (4.20-5.40); Red Cell Distribution Width-SD 52.9 fL; White Blood Count 14.4 K/mm3 (4.8-10.8)
[2025-05-20] MEDS: IOPAMIDOL-370 (76%);100ML BOTTLE 80 ML IV (14:24)
[2025-05-20] MEDS: SODIUM CHLORIDE 0.9% 10ML SYR (RAD ONLY) 10 ML IV (14:24)
[2025-05-20 14:27] LABS: VBG HCO3 30.6 mmol/L (23-30); VBG PH 7.31 mmol/L (7.31-7.41); VBG PO2 24.6 mmol/L (28-40)
[2025-05-20 14:30] LABS: Lactate Venous 2.5 mmol/L (0.4-2.0); VBG PCO2 62.0 mmol/L (35-51)
[2025-05-20] MEDS: ASPIRIN 325MG TABLET 325 MG PO (14:30)
--- OUTSIDE RECORDS SUMMARY | 2025-05-20 14:34 | XMS_ITS | Data Portability ---
Author Organization [place] [facility] ADMIN Address [address] [place] [address] Care Team Providers Care Helper/Driver Name Role Phone TOSHIA FROST Primary Care [...] to start medical treatment and transfer to [facility] for [facility]. 2. COPD exacerbation, responded well to respirator treatment. 3. Hypertension controlled. 4. Dyslipidemia start statin. 5. Chronic smoker, quit recently 6. Diabetes, follow up A1c. [email or web address] Not available 12/20/2024 09:50:33 Plan of Treatment Reminders Order Date Submit Date Provider Last Modified By Organization Details Last Modified Time Details Appointments OV EST 15 2025 10:30A M Ochoa Walls MD Not available Not available Not available Lab None recorded. Referral pulmonolo gist referral 2024 025 BLANCA Gomez MD, [address], [address], [place], [address], 04/21/2025 04:21:11 Procedures None recorded. Surgeries None recorded. Imaging electroca rdiogram 2024 [address], [place], [address], 12/24/2024 08:48:13 US, echocardi ogram, transthor acic, complete, w/ color flow - Please schedule late February. 2024 025 [facility], [address], [place], [address], 04/07/2025 04:12:15 Medication Orders None recorded. Patient TargetsNo targets recorded. Patient Instructions Encounter Date Encounter Id Patient Instructions Last Modified By Organization Details Last Modified Time 12/20/2024 [id number] cardiac rehabilitation* LINCOLN Not available 01/02/2025 04:11:28 Reason for Referral Beater Operator Referral for H istory of chronic obstructive airway disease Referring Physician: Sejal Walls, Cardiovascular Disease, Encounter Date: 12/20/2024 Results Created Date Observation Date Name Description Value Unit Range Abnormal Flag Note LastModifiedBy Organization Detail LastModifiedTime 12/21/19 25 12/24/2024 elect rocar diogr am No observ ation record ed. [address], [place], [address], 12/24/2024 08:48:23 12/25/19 25 12/20/2024 elect rocar diogr am No observ ation record ed. [address], [place], [address], 12/24/2024 08:48:14 01/02/20 25 12/06/[address] [...] Notes None recorded. Medical Equipment None Reported. Allergies No known drug allergies Medications Name Sig Start Date Stop Date Status Note LastModified by Organization Details LastModified Time amoxicillin 500 mg capsule TAKE ONE CAPSULE BY MOUTH TWICE DAILY FOR 10 DAYS 12/20 completed Not Available Not Available Not Available ipratropium 0.5 mg-albutero l 3 mg (2.5 mg base)/3 mL nebulizatio n soln INHALE CONTENTS OF 1 VIAL VIA NEBULIZER FOUR TIMES DAILY NEEDED FOR SHORTNESS OF BREATH active Not Available Not Available No t Available albuterol sulfate 2.5 mg/3 mL (0.083 [...] Available aspirin 81 mg tablet,arnav yed release take 1 tablet(81 mg) orally daily active Not Available Not Available No t Available spironolact one 25 mg tablet take 1 tablet(25 mg) orally every morning active Not Available Not Available No t Available citalopram 20 mg tablet take 1 tablet(20 mg) orally daily active Not Available Not Available No t Available levothyroxi ne 125 mcg tablet take 1 tablet(12 5 mcg) orally daily active Not Available Not Available No t Available omeprazole 20 mg capsule,del ayed release TAKE 1 CAPSULE BY MOUTH DAILY active Not Available Not Available No t Available furosemide 20 mg tablet take 1/2 tablet(10 mg) (1/2 x 20 mg) orally daily active Not Available Not Available No t Available metoprolol succinate ER 25 mg tablet,exte nded release 24 hr take 1 tablet(25 mg) orally daily active Not Available Not Available No t [...] t Available Entresto 24 mg-26 mg tablet take 1 tab orally twice a day active Not Available Not Available No t [...] 152.4 cm 68 /min 125/62 mm[Hg] [facility] [place] & [place] 12/20/2024 09:44:39 Date Recorded Body height Body mass index (BMI) Body weight Heart rate Oxygen saturation Oxygen saturation in Arterial blood by Pulse oximetry Systolic And Diastolic Provider Name and Address Organization Details Last Updated DateTime 152.4 cm 19.6 kg/m2 60054.0 3 g 68 /min 98 % 98 % 123/65 mm[Hg] [facility] & [place] 10:51:08 Social History None recorded. Functional Status None recorded. Mental Status None recorded. Family History Nothing Reported. Medical History No medical history recorded. Gynecological HistoryNo gynecological history recorded. Obstetrics History GPAL:G 0 P 0 0 0 0 Past Encounters Encounter ID Performer Location Encounter Start Date Encounter Closed Date Diagnosis/Indication Diagnosis SNOMED-CT Code Diagnosis ICD10 Code Diagnosis IMO Codes Diagnosis Note [id number] Sejal Walls MD [address] [place] [address] 12/20/2024 09:11:59 12/20/2024 10:05:28 Chronic systolic heart failure 560891072 I50.22 [id number] 64-year-ol d female with signs and symptoms of congestive heart failure. Left heart catheteriz ation showed mild coronary artery disease placed on medical treatment. Clinically patient is euvolemic. Follow up echocardio gram. Continue medical treatment. She is on aspirin statin beta odalis Entresto and Lasix And Aldactone. History of chronic obstructive airway disease 233973463 Z87.09 3919532 history of COPD on home oxygen. Recommend pulmonary evaluation and follow up. Essential hypertension 21392973 I10 22701 Controlled continue medication s. Dyslipidemia 170003937 E 78.5 870909 On statin follow up fasting lipid profile. Type 2 sabrina betes mellitus 65051933 E11.9 48879492 Follow up hemoglobin A1c. Cigarette smoker 1464053 7 F17.210 280026 Strongly encouraged the patient to quit smoking. I had a lengthy discussion with the patient regarding quitting smoking and available measuremen t to help patient quit smoking including support groups nicotine patches or medication like Chantix. [id number] Sejal aWlls MD [address] [place] [address] 03/24/2025 10:40:50 03/24/2025 11:19:52 Chronic systolic heart failure 248379170 I50.22 [id number] 64-year-ol d female with signs and symptoms of congestive heart failure. Left heart catheteriz ation showed mild coronary artery disease placed on medical treatment. Clinically patient is euvolemic. Follow up echocardio gram. Continue medical treatment. She is on aspirin statin beta odalis Entresto and Lasix And Aldactone. History of chronic obstructive airway disease 115769251 Z87.09 8387072 history of COPD on home oxygen. Recommend pulmonary evaluation and follow up. Essential hypertension 57276707 I10 94470 Controlled continue medication s. Dyslipidemia 493160513 E 78.5 310137 On statin follow up fasting lipid profile. Type 2 sabrina betes mellitus 13184144 E11.9 74361702 Follow up hemoglobin A1c. Ex-smoker 6186377 Z87.89 1 551184 Quit smoking August 2024. Health Concerns Section Related Observation LastModified by Organization Detai ls LastModified Time None Recorded Concern Status LastModified by Organization Details LastModified Time None Recorded Advance Directives Directive None Recorded Payers Insurance Date Sequence Insurance Name Policy Number Policy Nash Covered Member ID Nash Member ID Guarantor Name 04/04/2025 1 [employer] (MEDICARE REPLACEMENT/A DVANTAGE - [place]MO[id number] Priya L Masoud [id number] Priya L Masoud 04/04/2025 1 [place] Priya L Masoud [id number] Priya L Masoud 04/04/2025 1 [place] [id number] Priya L Masoud [id number] 1 Priya L Masoud 04/04/2025 2 [employer] [place] (MEDICA[place] HMO) Priya L Masoud [id number] Priya L Masoud 04/04/2025 1 [employer] [place] ([place] Priya L Masoud [id number] Priya L Masoud Notes Date Note Type Note Provider Name and Address Organization Details Recorded Time 12/20/2024 text/html 64 year old female with past medical history significant for hypertension, [...] optimizing her medical treatment and follow up. LHC 12/06/24Mid RCA 30%. EK12/05/24 sinus tachycardia. HR 114 bpm. inferior infarct age undetermined. abnormal EKG. EK12/20/24 sinus bradycardia. HR 59 bpm. T wave abnormality consider inferolateral ischemia. abnormal EKG. follow up hospital nstemi cathed no significant disease.please send refil of chf medicationsno leg swelling. Sejal Walls MD [address], [place], [address], [facility] & [place] 12/26/2024 11:50:53 03/24/2025 text/html 64 year old female with past medical history significant for hypertension, diabetes, ex smoker, since 09/24. COPD, on inhalers and home oxygen. was recently admitted to the hospital through the ER after she presented with dyspnea and found to have elevated trop and diagnosed with NSTEMI. Patient underwent left heart catheterization on 12/06/2024 and showed mild coronary artery disease with 30% mid RCA stenosis. Patient was placed on medical treatment. Patient came today for regular cardiovascular follow up. Patient did not do her echo yet. We will reschedule her echo to assess her LV systolic function and we will refer for pulmonary evaluation. She quit smoking August 2024. She has been doing much better. She has still have chronic productive cough no hemoptysis no bleeding anywhere. No chest pain. She has exertional shortness of breath on moderate exertion no shortness of breath at rest. No orthopnea PND or leg swelling. No palpitation dizziness falling down or passing out. She recently had blood work done at her primary doctor's office we will call for the results. [facility] 12/06/24Mid RCA 30%. EK12/05/24 sinus tachycardia. HR 114 bpm. inferior infarct age undetermined. abnormal EKG. EK12/20/24 sinus bradycardia. HR 59 bpm. T wave abnormality consider inferolateral ischemia. abnormal EKG. Sejal Walls MD [address], [place], [address], [place] [facility] & [place] 03/24/2025 11:21:29 OBGyn Episode No OBEpisode recorded.
--- OUTSIDE RECORDS SUMMARY | 2025-05-20 14:34 | XMS_ITS | Continuity of Care Document ---
Author Organization [facility] Address [address] [place] [address] Care Team Providers Care Dealmaker Name Role Phone TOSHIA FROST Primary Care Provider Assessment No assessment recorded. Plan of Treatment Reminders Order Date Submit Date Provider Last Modified By Organization Details Last Modified Time Details Appointments OV EST 15 026 10:30AM M MD Titi Not available Not available Not available Lab None record ed. Referral None record ed. Procedures None record ed. Surgeries None record ed. Imaging None record ed. Medication Orders None record ed. Patient TargetsNo targets recorded. Patient InstructionsNo instructions recorded. Reason for Referral None Reported. Medical Equipment None Reported. Allergies No known [...] DAY ON DAY 2 THROUGH DAY 5 05/23 /2025 completed Not Available Not Available Not Available [...] Available Not Available Vitals Date Recorded Body height Body mass index (BMI) Body weight Heart rate Oxygen saturation Oxygen saturation in Arterial blood by Pulse oximetry Systolic And Diastolic Provider Name and Address Organization Details Last Updated DateTime 5 152.4 cm 19.6 kg/m2 57441.0 3 g 68 /min 98 % 98 % 123/65 mm[Hg] Olga Reyes [place] [facility] - [place] & [place] 10:51:08 Social History None recorded. Functional Status None recorded. Mental Status None recorded. Family History Nothing Reported. Medical History No medical history recorded. Gynecological HistoryNo gynecological history recorded. Obstetrics History GPAL:G 0 P 0 0 0 0 Past Encounters Encounter ID Performer Location Encounter Start Date Encounter Closed Date Diagnosis/Indication Diagnosis SNOMED-CT Code Diagnosis ICD10 Code Diagnosis IMO Codes Diagnosis Note [id number] Sejal Walls MD [address] [place] [address] 03/24/2025 10:40:50 03/24/2025 11:19:52 Chronic systolic heart failure 993299988 I50.22 [id number] 64-year-ol d female with signs and symptoms of congestive heart failure. Left heart catheteriz ation showed mild coronary artery disease placed on medical treatment. Clinically patient is euvolemic. Follow up echocardio gram. Continue medical treatment. She is on aspirin statin beta odalis Entresto and Lasix And Aldactone. History of chronic obstructive airway disease 951180540 Z87.09 3312647 history of COPD on home oxygen. Recommend pulmonary evaluation and follow up. Essential hypertension 70216090 I10 15024 Controlled continue medication s. Dyslipidemia 378323456 E 78.5 426958 On statin follow up fasting lipid profile. Type 2 sabrina betes mellitus 78560369 E11.9 02009344 Follow up hemoglobin A1c. Ex-smoker 7835618 Z87.89 1 440134 Quit smoking August 2024. Health Concerns Section Related Observation LastModified by Organization Detai ls LastModified Time None Recorded Concern Status LastModified by Organization Details LastModified Time None Recorded Payers Encounter Date Sequence Insurance Name Policy Number Policy Nash Covered Member ID Nash Member ID Guarantor Name 03/24/2025 2 [employer] [place] (MEDICAID HMO) Priya Meredith [id number] Priya Meredith 03/24/2025 1 [employer] (MEDICARE REPLACEMENT/A DVANTAGE - HMO) [id number] Priya Meredith [id number] Priya Meredith Notes Date Note Type Note Provider Name and Address Organization Details Recorded Time 03/24/2025 text/html 64 year old female with [...] office we will call for the results. [facility] 12/06/24Mid RCA 30%. EK12/05/24 sinus tachycardia. HR 114 bpm. inferior infarct age undetermined. abnormal EKG. EK12/20/24 sinus bradycardia. HR 59 bpm. T wave abnormality consider inferolateral ischemia. abnormal EKG. Sejal Walls MD [address] [place] [address], [address] - [place] & [place] 03/24/2025 11:21:29 OBGyn Episode No OBEpisode recorded.
[2025-05-20 14:35] LABS: Albumin Level 4.0 g/dl (3.5-5.0); Chloride 94 mmol/L (98-107); Potassium 3.3 mmoL/L (3.5-5.1); Sodium 139 mmol/L (136-145)
[2025-05-20 14:38] LABS: Alanine Aminotransferase 18 U/L (12-78); Albumin/Globulin Ratio 1.0 (1.1-1.8); Alkaline Phosphatase 121 U/L (38-126); Anion Gap 14.3 mEq/L (5-15); Aspartate Amino Transferase 26 U/L (14-36); Bilirubin,Total 0.4 mg/dl (0.2-1.3); Calcium 9.3 mg/dl (8.4-10.2); Carbon Dioxide 34 mmol/L (22.0-30.0); Globulin 3.9 g/dL (1.3-3.2); Glucose 150 mg/dl (74-100); Lipase 29 U/L (23-300); Total Protein,Serum 7.9 g/dl (6.3-8.2)
--- NOTE | 2025-05-20 14:41 | HMH.PHAINT1 ---
Pharmacy Intervention Comments: MEDICATION RECONCILIATION COMPLETED ON PATIENT USING EXTERNAL FILL HISTORY FROM PHARMACY. -BELLA RIGGS, HARSHILD
[2025-05-20 14:43] LABS: Blood Urea Nitrogen 16 mg/dl (7-17); Creatinine Clearance Estimated 41 mL/min (50-200); Creatinine,Serum 0.80 mg/dl (0.52-1.04); Estimated Glomerular Filt Rate 72 ml/min (>60); GFR (African American) 87 ML/MIN (>60)
[2025-05-20 14:47] LABS: NT Pro Brain Natriuretic Pep. 1920 pg/mL (0-125)
--- NOTE | 2025-05-20 14:47 | PC.NURSE ---
1404 STEMI ALERT CALLED
--- NOTE | 2025-05-20 14:48 | PC.NURSE ---
pads placed on pt bilateral wrist and groin shaved STEMI report sheet filled out
[2025-05-20 14:49] LABS: Troponin I 0.02 ng/ml (0.00-0.034)
--- NOTE | 2025-05-20 14:55 | PC.NURSE ---
purse with pt at bedside, family stating they are leaving and are unable to take pts purse with them.
--- NOTE | 2025-05-20 15:12 | PC.NURSE ---
Spoke with Erika Kent RN in [facility]. OK to bring pt to [facility] assistant at this time
[2025-05-20 15:16] LABS: Activated Partial Thrombo Time 29.3 seconds (22.8-30.6); INR 1.04 (0.9-1.1); Prothrombin Time 11.5 seconds (10.1-12.5)
--- NOTE | 2025-05-20 15:30 | PC.NURSE ---
pts allyson and yara were transported with pt to [facility] assistant, verified with e conn
[2025-05-20] MEDS: LIDOCAINE 1% 10ML MDV 10 ML IJ (15:47)
[2025-05-20] MEDS: 0.9 % SODIUM CHLORIDE 500 ML 25 ML IV (15:48)
[2025-05-20] MEDS: HEPARIN 1,000 UNITS/500ML NS (CATH LAB) 3000 UNIT IV (15:48)
[2025-05-20 15:53] LABS: Hepatitis C Ab Qual. W/ RFX NEGATIVE (Negative)
[2025-05-20] MEDS: MIDAZOLAM HCL 1MG/ML 5ML VIAL 1 MG IV (16:23)
[2025-05-20] MEDS: FENTANYL 100MCG/2ML VIAL 50 MCG IV (16:23)
--- NOTE | 2025-05-20 16:55 | PC.NURSE ---
arrived by enrriqueer from [facility]
--- NOTE | 2025-05-20 17:33 | P.HP_ITS ---
History of Present Illness *Admission Date: 05/20/25 *Reason for visit:: Abnormal EKG *History of present illness: Priya Meredith is a 64-year-old female patient with a medical history significant for degenerative disc disease of lumbar spine who presented from PCPs office due to acute on chronic low back pain and an abnormal EKG with ST depressions in in inferior and lateral leads. Given these findings, Dr. Kidd was consulted who recommended emergent LHC. Patient was taken to [facility] which remarkably did not reveal coronary disease by Dr. Lucero. Repeat EKG did not show these ST abnormalities in the ED. Upon my evaluation of the patient, she was still slightly sedated and stated she was feeling better. No chest pain, shortness of breath. Patient will be monitored overnight for further evaluation and management on telemetry. [facility] Disclaimer: The information contained in this section may have been updated after the patient was seen, as this information can be updated by other users. Medical History URI (upper respiratory infection) Acute dyspnea Heart attack COPD (chronic obstructive pulmonary disease) Coronary artery calcification seen on CT scan Abnormal electrocardiogram [ECG] [EKG] Bronchitis Surgical History H/O tubal ligation Family History Father Cancer Mother Heart attack Social History (Updated 05/20/25 @ 17:53 by Shania Beard RN) Smoking Status: Former smoker alcohol intake: never substance use type: marijuana current occupational status: other Travel in the last 8 weeks?: None household members: family housing: apartment Other Medical History Have you received the Flu Vaccine for this season: No Have you received the Pneumonia Vaccine: No Meds Home Medications and Allergies Home Medications ?Medication ?Instructions ?Recorded ?Confirmed ?Type aspirin 81 mg capsule 81 mg PO DAILY #90 caps 01/2805/20/25 Rx furosemide 20 mg tablet (Lasix) 10 mg (1/2 x 20 mg) PO DAILY #30 02/10/25 05/20/25 Rx tabs metoprolol succinate 25 mg 25 mg PO DAILY #90 tabs 05/20/25 Rx tablet,extended release 24 hr sacubitril 24 mg-valsartan 26 mg 1 tab PO BID #180 tab s 02/10/25 05/20/25 Rx tablet (Entresto) Held on 05/21/25. Instructions: Resume on 05/28/25. Your blood pressures have been stable without this medication. Please follow-up with cardiology for further guidance. albuterol sulfate 90 mcg/actuation 2 puff inhalation Q 4HP PRN 05/20/25 05/20/25 History aerosol inhaler Shortness Of Breath citalopram 20 mg tablet 20 mg PO DAILY 05/20/2505/01 History omeprazole 20 mg capsule,delayed 20 mg PO DAILY 05/20/25 History release rosuvastatin 10 mg tablet 10 mg PO DAILY 05/20/2505/01 History spironolactone 25 mg tablet 25 mg PO DAILY 05/20/25 History Held on 05/21/25. Instructions: Resume on 06/04/25. Your blood pressures have been stable without this medication. Please follow-up with cardiology for further guidance. levothyroxine 150 mcg capsule 150 mcg PO DAILY 30 days #30 caps 05/21/25 Rx meloxicam 7.5 mg tablet 7.5 mg PO BIDP PRN pain #14 tabs 05/21/25 Rx umeclidinium 62.5 mcg-vilanterol 1 inh inhalation MAGI Y #60 ea 05/21/25 Rx 25 mcg/actuation powdr for inhalation (Anoro Ellipta) New Prescriptions to Start Prescriptions: levothyroxine Cosme Rhodes meloxicam Cosme Rhodeslidinium-vilanterol [Anoro Ellipta] Cosme Rhodes Allergies Allergy/AdvReac Type Severity Reaction Status Date / Time codeine AdvReac Mild Other Verified 05/20/25 13:38 Exam Data for Last 24 hours Vital signs and Labs for Last 24 Hours: Temp Pulse Resp BP Pulse Ox O2 Del Method O2 Flow Rate 98.4 F 80 18 88/56 L 97 Nasal Cannula 3 05/20/25 16:36 05/20/25 16:45 05/20/25 16:45 05/20/25 16:45 05/20/25 16:45 05/20/25 16:45 05/20/25 16:45 Laboratory Results - last 24 hr 05/20/25 14:10: WBC 14.4 H, RBC 4.37, Hgb 13.1, Hct 39.9, MCV 91.3, MCH 30.0, MCHC 32.8, RDW 15.9, Plt Count 562 H, MPV 9.4, Neut % (Auto) 80.5 H, Lymph % (Auto) 14.0, [place] % (Auto) 4.7, Eos % (Auto) 0.3, Baso % (Auto) 0.2, Neut # (Auto) 11.6 H, Lymph # (Auto) 2.0, [place] # (Auto) 0.7, Eos # (Auto) 0.0, Baso # (Auto) 0.0, PT 11.5, INR 1.04, APTT 29.3, Sodium 139, Potassium 3.3 L, Chloride 94 L, Carbon Dioxide 34 H, Anion Gap 14.3, BUN 16, Creatinine 0.80, Estimated Creat Clear 41, Estimated GFR 72, Est GFR ( Amer) 87, Glucose 150 H, Calcium 9.3, Total Bilirubin 0.4, AST 26, ALT 18, Alkaline Phosphatase 121, Troponin I 0.02, NT-Pro-B Natriuret Pep 1920 H, Total Protein 7.9, Albumin 4.0, Globulin 3.9 H, Albumin/Globulin Ratio 1.0 L, Lipase 29, HCV Ab JODIE w/Rflx PCR Qn Negative, HIV Ag/Ab Combo Qual Negative 05/20/25 14:15: VBG pH 7.31, VBG pCO2 62.0 H, VBG pO2 24.6 L, VBG HCO3 30.6 H, VBG Total CO2 32.5 H, VBG O2 Saturation 37.1 L, VBG Base Excess 4.3 H, VBG Lactic Acid 2.5 H I & O for Last 24 hours: Intake & Output 05/17/25 05/18/25 05/19/25 05/20/25 23:59 23:59 23:59 23:59 Intake Total 500 / 500 Balance 500 / 500 Weight 46.72 kg Constitutional Constitutional: no acute distress *Routine HEENT Exam Head: Present normocephalic Eye: Present EOMI and PERRL ENT: Present mucous membranes moist *Routine Neck Exam Neck: Present supple; Absent lymphadenopathy *Routine Respiratory Exam Respiratory: Present CTA bilaterally *Routine Cardiovascular Exam Cardiovascular: Present RRR *Routine Abdominal Exam Abdominal: Present soft and normoactive bowel sounds; Absent tenderness *Routine Rectal Exam Rectal:: deferred *Routine Genitalia Exam Genitalia:: deferred *Routine Extremities Exam Extremities: Absent cyanosis, clubbing or edema *Routine Skin Exam Skin: Present warm; Absent rash *Routine Neurological Exam Neurological: Present alert Assessment and Plan *Assessment and plan (1) Abnormal EKG: Status: Acute Category: Medical Code(s): R94.31 - Abnormal electrocardiogram [ECG] [EKG] (2) Back pain: Status: Acute Category: Medical Code(s): M54.9 - Dorsalgia, unspecified Plan Priya Meredith is a 64-year-old female patient with a medical history significant for degenerative disc disease of lumbar spine who presented from PCPs office due to acute on chronic low back pain and an abnormal EKG with ST depressions in in inferior and lateral leads. Given these findings, Dr. Kidd was consulted who recommended emergent LHC. Patient was taken to [facility] which remarkably did not reveal coronary disease by Dr. Lucero. Repeat EKG did not show these ST abnormalities in the ED. Upon my evaluation of the patient, she was still slightly sedated and stated she was feeling better. No chest pain, shortness of breath. Patient will be monitored overnight for further evaluation and management on telemetry. #Abnormal EKG ? S/p LHC on 05/20/2025 with normal coronary disease. ECHO showed trivial pericardial effusion without tamponade, but otherwise unremarkable. Troponins normal. ? Repeat EKG unremarkable. Cardiology evaluated, no further recommendations. ? Will monitor overnight on telemetry and plan for cardiology follow-up within 2 weeks. #Lumbar degenerative disc disease ? Patient presented with acute on chronic low back pain, no red flag symptoms. ? Toradol as needed. #Elevated TSH ? TSH 20.60, follow-up free T4. Full code DVT prophylaxis: Lovenox 40 mg
[2025-05-20 17:54] LABS: Troponin I 0.02 ng/ml (0.00-0.034)
[2025-05-20 18:29] LABS: Reflex Lactic Add Lactic Reflex
[2025-05-20 19:12] LABS: POC Glucose,Bedside 77 gm/dL (70-110)
[2025-05-20 19:14] LABS: Lactic Acid Follow Up (RFLX 1) 0.8 mmol/L (0.7-2.1)
--- NOTE | 2025-05-20 19:49 | PC.NURSE ---
patient arrived from offset label rewinder, right groin site dressing is CDI, post cath vitals have been started. patient is still lightly sedated and insists on laying on her right side despite being instructed to lay on her back due to risk for bleeding/hematoma. Right groin site is squishy, no hematoma noted.
--- NOTE | 2025-05-20 20:31 | PC.NURSE ---
rectal temp obtained by this RN at shift change. 96.8. Warm blankets applied and room temperature increased.
[2025-05-20 21:02] LABS: Troponin I 0.03 ng/ml (0.00-0.034)
[2025-05-21] VITALS (7 sets, daily range): BP systolic 95–110; BP diastolic 52–63; PULSE 70–95; RESP 16–18; TEMP 36.6–36.9; O2SAT 95–97; BMI 21.0
[2025-05-21 06:48] LABS: Hematocrit 35.3 % (37.0-47.0); Immature Granulocytes % 0.2 %; Mean Corpuscular HGB Conc 32.0 g/dL (31.8-35.4); Mean Corpuscular Hemoglobin 29.0 pg (27.0-31.2); Mean Corpuscular Volume 90.7 fl (81-99); Nucleated Red Blood Cells % 0 %; Platelet Count 467 K/mm3 (142-424); Red Blood Count 3.89 M/mm3 (4.20-5.40); Red Cell Distribution Width-SD 53.1 fL; White Blood Count 9.2 K/mm3 (4.8-10.8)
--- NOTE | 2025-05-21 07:00 | CA_ITS ---
APPROVED REPORT EXAM: Comprehensive 2D, Doppler, and color-flow Echocardiogram Phlebotomist Medical Lab Assistant: Tea Newby, RCS, RVS Ht: 5 ft 0 in Wt: 103lbs BSA: 1.41 BP: 138/80 mmHg Indications: SOB, COPD, Exsmoker, Post Cath, SOB 2D Dimensions IVSd 0.88 cm F: 0.6-1.0 LVEF (Visual) 58.00 % PWd 0.85 cm F: 0.6 - 1.0 LVDd 4.35 cm F: 3.9 - 5.3 LVDs 3.03 cm F: 2.2 - 3.5 Left Atrium 2.38 cm F: 2.7 - 3.8 M-Mode Dimensions RVDd 2.84 cm (0.9-2.6) LA Diam 2.39 cm (1.9-4.0) LVDd 2.91 cm (3.5-5.7) LVDs 2.21 cm (3.5-5.7) IVSd 1.14 cm (0.6-1.1) PWd 0.94 cm (0.6-1.1) EF (Teich) 49.50% EPSs 0.64 cm FS 24.10% EDV (Teich) 32.50 mL TAPSE 2.39 (<1.7) ESV (Teich) 16.40 mL LV Diastology E Decel Time 143 (160-240 msec) E/A Ratio 0.79 MED A' 11.00 cm/s LAT A' 7.40 cm/s Aortic Valve STEPHANE Index 1.15 cm2/m2 AoV Peak Talon. 146.0 (50-130 cm/s) AO Peak GR. 8.50 mmHg AO Mean GR. 4.20 (<5 mmHg) AO VTI 21.9 (18-25 cm) STEPHANE (VTI) 1.65 (2.5-4.5 cm2) Mitral Valve MV A Velocity 81.0 (40-130 cm/s) E/A Ratio 0.79 Pulmonary Valve PV Peak Velocity 119.0 (50-150 cm/s) Tricuspid Valve TR P. Velocity 259.00 cm/s RAP Estimate 10.00 mmHg RVSP 36.80 mmHg Left Ventricle The left ventricle is normal size. Left ventricular systolic function is normal. The left ventricular ejection fraction is within the normal range. There is increased left ventricular wall thickness. The septum is asynchronous. Transmitral Doppler flow pattern suggests impaired LV relaxation. LVEF is 55%. Right Ventricle The right ventricle is mildly dilated. The right ventricular systolic function is normal. Atria The left atrium size is normal. The right atrium size is normal. There is no color Doppler evidence of interatrial shunt. Aortic Valve The aortic valve is mildly thickened. There is no hemodynamically significant aortic valvular stenosis. Trace aortic regurgitation is present. Mitral Valve The mitral valve is mildly thickened. No evidence of mitral valve stenosis. Trace mitral regurgitation is present. Tricuspid Valve The tricuspid valve leaflets are thin and pliable. Mild tricuspid regurgitation. RVSP is 20-25 mmHg. Pulmonic Valve The pulmonary valve is grossly normal in structure. Mild pulmonic valve regurgitation is present. Great Vessels The aortic root is normal in size. IVC is normal in size and collapses >50% with inspiration. Pericardium Trivial, anterior pericardial effusion. No echo indications of tamponade. Other Information Study Quality: Fair Conclusion Normal biventricular systolic function. Mild RV dilation. Mild TR, mild PI. Trivial, anterior pericardial effusion. No echo indications of tamponade. Electronically signed by : Chasidy Robison MD 05/21/2025 10:39:38
[2025-05-21 07:06] LABS: Albumin Level 3.2 g/dl (3.5-5.0); Chloride 99 mmol/L (98-107); Potassium 3.4 mmoL/L (3.5-5.1); Sodium 138 mmol/L (136-145)
[2025-05-21 07:09] LABS: Alanine Aminotransferase 12 U/L (12-78); Albumin/Globulin Ratio 1.0 (1.1-1.8); Alkaline Phosphatase 97 U/L (38-126); Anion Gap 9.4 mEq/L (5-15); Aspartate Amino Transferase 23 U/L (14-36); Bilirubin,Total 0.3 mg/dl (0.2-1.3); Blood Urea Nitrogen 12 mg/dl (7-17); Calcium 8.5 mg/dl (8.4-10.2); Carbon Dioxide 33 mmol/L (22.0-30.0); Creatinine Clearance Estimated 43 mL/min (50-200); Creatinine,Serum 0.60 mg/dl (0.52-1.04); Estimated Glomerular Filt Rate 100 ml/min (>60); GFR (African American) 121 ML/MIN (>60); Globulin 3.1 g/dL (1.3-3.2); Glucose 98 mg/dl (74-100); Total Protein,Serum 6.3 g/dl (6.3-8.2)
[2025-05-21 07:10] LABS: Magnesium 2.1 mg/dl (1.6-2.3)
[2025-05-21 07:18] LABS: Hemoglobin 11.3 g/dL (12.2-16.2)
--- NOTE | 2025-05-21 08:21 | SW/DCPLANNER ---
I spoke w/ patient regarding plans once medically stable for discharge. PT evaluated patient and recommended outpatient services. Patient is agreeable to outpatient PT in [facility]. Patient confirmed she will have transportation and does have a rolling walker at home. Discharge date is unknown at this time. CM will continue to follow up.
--- NOTE | 2025-05-21 08:49 | HMH.PTEV ---
Physical Therapy Evaluation Rehab PT IP Evaluation Start: 05/20/25 18:00 Freq: ONCE Status: Active Protocol: Document 05/21/25 08:46 JOSE (Rec: 05/21/25 08:49 JOSE [id number]) Subjective/History History History Per H&P: Priya Meredith is a 64-year-old female with past medical history of [place], COPD who presents to the emergency department from primary care office for concern for STEMI. Per patient, she has had chronic back pain for many years that has persisted. She states that over the last 2 to 3 days, she has been more short of breath than normal. She denies any chest pain. She states that she last had a heart attack in August of this year. She was seen at her primary care doctor where she was mildly hypoxic to 85% received a breathing treatment and then had an EKG that was sent to Dr. Kidd with cardiology who stated that this was a subacute STEMI. She came to the emergency department and was STEMI alerted. Cardiology was at the bedside time patient's arrival and recommended a CTA of the chest to rule out dissection and then Tube Former Operator afterwards as long as there is no dissection. Subjective Subjective Pt reports she lives with her daughter in a SS home with no [place]. Pt normally IND without AD use. Pt does own a RW. Pt still drives. Pt has been mostly limited in ambulation by LBP. [facility] How much help from another person do you currently need... Turning from your None back to your side while in a flat bed without using bedrails? Moving from lying on None back to sitting on the side of a flat bed without using bedrails? Moving to and from a None bed to a chair ( including a wheelchair)? Standing up from a None chair using your arms? (e.g., wheelchair, bedside chair) Walking in hospital None room? Climbing 3-5 steps A little with a railing? Mobility Score 23 Mobility Level [facility] Mobility 7 Walk 25 feet or more Mobility Calculator Rehab PT IP Eval Objective Appearance Patient Behavior Appropriate,Cooperative Patient Orientation Person,Place Difficulty following none instructions Speech Pattern Clear Ambulation Patient Able to Yes Ambulate Ambulation Observation IP General Gait No Deviations/Normal Pattern Observation Ambulation Distance 50 (feet) Ambulation Assistive Rolling Walker Device Ambulation Ability Supervision/Stand by Balance Ability to Arise Able, uses arms to help Sitting Balance Steady, safe Standing Balance Steady, wide stance Dynamic Sitting Good Balance Ability Dynamic Standing Good Balance Ability Transfers Bed Transfer Ability Supervision/Stand by Sit to Stand Bed Supervision/Stand by Transfer Ability Rehab PT IP prob,goals,plan Problems Date of Evaluation: 05/21/25 Rehab Potential Rehab Potential Innapropriate for Skilled Therapy Discharge Plan PT Discharge Plan Pt appears to be at her baseline in mobility and would not benefit from skilled acute care PT at this time. PT recommending OP PT to address LBP once medically stable/cleared from MD. [place] Complexity Eval Charge Codes 85563 - Moderate Complexity PHYSICIAN CERTIFICATION: I certify the specified therapy services for Priya Meredith are required, authorized, and reviewed every 30 days.
[2025-05-21 08:51] LABS: Triiodothryronine (T3) Uptake 36 % (23.5-40.5)
[2025-05-21 08:52] LABS: Free Thyroxine Index 2.4 ug/dL (5.93-13.13); T4 (Thyroxine) 6.6 ug/dl (5.53-11.0)
[2025-05-21] MEDS: POTASSIUM CHLORIDE 20MEQ TAB 40 MEQ PO ×2 (09:04→12:18)
[2025-05-21] MEDS: KETOROLAC 15MG/ML VIAL 15 MG IV (09:04)
[2025-05-21 09:05] LABS: Thyroid Stimulating Hormone 20.60 uIU/mL (0.465-4.68)
[2025-05-21 09:15] LABS: Lactate Venous 1.3 mmol/L (0.4-2.0); VBG HCO3 33.3 mmol/L (23-30); VBG PH 7.39 mmol/L (7.31-7.41); VBG PO2 31.7 mmol/L (28-40)
[2025-05-21 09:20] LABS: VBG PCO2 55.7 mmol/L (35-51)
[2025-05-21] MEDS: FUROSEMIDE 20MG TABLET 10 MG PO (09:20)
[2025-05-21] MEDS: METOPROLOL SUCCINATE XL 25MG TABLET 25 MG PO (09:21)
[2025-05-21] MEDS: ASPIRIN EC 81MG TABLET 81 MG PO (09:21)
[2025-05-21] MEDS: CITALOPRAM 20MG TABLET 20 MG PO (09:21)
--- NOTE | 2025-05-21 09:43 | HMH.OTEV ---
OT Evaluation Rehab OT IP Evaluation Start: 05/20/25 18:00 Freq: ONCE Status: Active Protocol: Document 05/21/25 09:33 [place] (Rec: 05/21/25 09:39 [facility] [id number]) Rehab OT IP Assessment Subjective History Pt oriented x 3 on arrival. Pt agreeable to engage in therapy evaluation. Pt admitted on 05/20/25 due to back pain. History and physical: Priya Meredith is a 64-year-old female with past medical history of [place], COPD who presents to the emergency department from primary care office for concern for STEMI. Per patient, she has had chronic back pain for many years that has persisted. She states that over the last 2 to 3 days, she has been more short of breath than normal. She denies any chest pain. She states that she last had a heart attack in August of this year. She was seen at her primary care doctor where she was mildly hypoxic to 85% received a breathing treatment and then had an EKG that was sent to Dr. Kidd with cardiology who stated that this was a subacute STEMI. She came to the emergency department and was STEMI alerted. Cardiology was at the bedside time patient's arrival and recommended a CTA of the chest to rule out dissection and then Rand Sewer afterwards as long as there is no dissection. Subjective Prior to being in the hospital, pt lived with her daughter. Pt claims normally she is independent with all ADLs and IADLs. She does not use a rolling walker during functional transfers. Pt reports she is on o2 at all times (2L). Pt also still drives. Objective Patient Orientation Person,Place,Birthday Right Upper WNL Extremity Gross ROM Left Upper Extremity WNL Gross ROM Bed Mobility bed mobility-scooting,bed mobility - supine/sit,bed mobility - rolling Assist Level Supervision/Stand by Transfer Training Sit/Stand Transfer Assist Level Supervision/Stand by Lower Body Dressing Standby Assistance Ability Performing Toilet Standby Assistance Hygiene Ability Overall Commode/ Standby Assistance Toilet Transfer Ability Commode/Toilet Sit to/from Ambulatory Transfer Technique Rehab OT IP prob,goals,plan Problems Date of Evaluation: 05/21/25 Rehab Potential Rehab Potential Innapropriate for Skilled Therapy Discharge Plan OT Discharge Plan Pt appears to be at her baseline with functional transfers and ADL independence at this time. Pt can return home once she is medically stable per physician. Eval Complexity Eval Charge Codes 56561 - Moderate Complexity PHYSICIAN CERTIFICATION: I certify the specified therapy services for Priya Meredith are required, authorized, and reviewed every 30 days.
[2025-05-21 10:08] LABS: Free T4 (Free Thyroxine) 1.09 ng/dl (0.78-2.19)
--- NOTE | 2025-05-21 10:27 | CA_ITS ---
FINAL REPORT TECHNIQUE: Graded compression, spectral analysis and ultrasound images of the venous system of the upper extremity were obtained. CLINICAL HISTORY: LUE edema x 2 weeks. Recent venipuncture to left antecubital region. Ex smoker, COPD. FINDINGS: The jugular vein, subclavian vein, axillary vein, brachial vein, cephalic vein and basilic venous system are fully compressible and demonstrate no evidence of thrombosis. IMPRESSION: No evidence of thrombosis of the venous system of the left upper extremity. Reviewed, Interpreted and Dictated by Philip Lackey MD Transcribed by Yumiko Levin Authenticated and [facility]
--- NOTE | 2025-05-21 10:36 | EXP.CARD.CON ---
History of Present Illness History of Present Illness Consult date: 05/21/25 Requesting physician: Cosme Rhodes Chief complaint: Back pain History of present illness: ER note: Priya Meredith is a 64-year-old female with past medical history of [place], COPD who presents to the emergency department from primary care office for concern for STEMI. Per patient, she has had chronic back pain for many years that has persisted. She states that over the last 2 to 3 days, she has been more short of breath than normal. She denies any chest pain. She states that she last had a heart attack in August of this year. She was seen at her primary care doctor where she was mildly hypoxic to 85% received a breathing treatment and then had an EKG that was sent to Dr. Kidd with cardiology who stated that this was a subacute STEMI. She came to the emergency department and was STEMI alerted. Cardiology was at the bedside time patient's arrival and recommended a CTA of the chest to rule out dissection and then Sound Effects Person afterwards as long as there is no dissection. Cardiology note: Status post left heart catheterization yesterday which revealed normal coronaries. Troponins negative. Chest CTA negative for PE but did show an incidental splenic mass recommended 2 to 3-month follow-up. Preliminary echo report shows a normal EF. Patient reports no chest pain or shortness of breath. She reports her back pain has resolved. [facility] Disclaimer: The information contained in this section may have been updated after the patient was seen, as this information can be updated by other users. Medical History URI (upper respiratory infection) Acute dyspnea Heart attack COPD (chronic obstructive pulmonary disease) Coronary artery calcification seen on CT scan Abnormal electrocardiogram [ECG] [EKG] Bronchitis Surgical History H/O tubal ligation Family History Father Cancer Mother Heart attack Social History (Updated 05/20/25 @ 17:53 by Shania Beard RN) Smoking Status: Former smoker alcohol intake: never substance use type: marijuana current occupational status: other Travel in the last 8 weeks?: None household members: family housing: apartment Review of Systems Review of Systems Review of systems:: pertinent systems reviewed and negative unless documented below Exam Data for Last 24 hours Vital signs and Labs for Last 24 Hours: Temp Pulse Resp BP Pulse Ox O2 Del Method O2 Flow Rate 97.8 F 95 H 18 110/63 96 Nasal Cannula 2 05/21/25 08:00 05/21/25 08:00 05/21/25 08:00 05/21/25 08:00 05/21/25 08:00 05/21/25 09:00 05/21/25 08:00 Laboratory Results - last 24 hr 05/20/25 14:10: WBC 14.4 H, RBC 4.37, Hgb 13.1, Hct 39.9, MCV 91.3, MCH 30.0, MCHC 32.8, RDW 15.9, Plt Count 562 H, MPV 9.4, Neut % (Auto) 80.5 H, Lymph % (Auto) 14.0, Hartley % (Auto) 4.7, Eos % (Auto) 0.3, Baso % (Auto) 0.2, Neut # (Auto) 11.6 H, Lymph # (Auto) 2.0, Hartley # (Auto) 0.7, Eos # (Auto) 0.0, Baso # (Auto) 0.0, PT 11.5, INR 1.04, APTT 29.3, Sodium 139, Potassium 3.3 L, Chloride 94 L, Carbon Dioxide 34 H, Anion Gap 14.3, BUN 16, Creatinine 0.80, Estimated Creat Clear 41, Estimated GFR 72, Est GFR ( Amer) 87, Glucose 150 H, Calcium 9.3, Total Bilirubin 0.4, AST 26, ALT 18, Alkaline Phosphatase 121, Troponin I 0.02, NT-Pro-B Natriuret Pep 1920 H, Total Protein 7.9, Albumin 4.0, Globulin 3.9 H, Albumin/Globulin Ratio 1.0 L, Lipase 29, HCV Ab JODIE w/Rflx PCR Qn Negative, HIV Ag/Ab Combo Qual Negative 05/20/25 14:15: VBG pH 7.31, VBG pCO2 62.0 H, VBG pO2 24.6 L, VBG HCO3 30.6 H, VBG Total CO2 32.5 H, VBG O2 Saturation 37.1 L, VBG Base Excess 4.3 H, VBG Lactic Acid 2.5 H 05/20/25 17:20: Troponin I 0.02 05/20/25 18:58: Lactate 0.8 05/20/25 19:02: POC Glucose 77 05/20/25 20:32: Troponin I 0.03 05/21/25 06:08: WBC 9.2 D, RBC 3.89 L, Hgb 11.3 L D, Hct 35.3 L, MCV 90.7, MCH 29.0, MCHC 32.0, RDW 15.9, Plt Count 467 H, MPV 9.4, Neut % (Auto) 66.6, Lymph % (Auto) 24.0, Hartley % (Auto) 7.0, Eos % (Auto) 1.7, Baso % (Auto) 0.5, Neut # (Auto) 6.1, Lymph # (Auto) 2.2, Hartley # (Auto) 0.6, Eos # (Auto) 0.2, Baso # (Auto) 0.1, Sodium 138, Potassium 3.4 L, Chloride 99, Carbon Dioxide 33 H, Anion Gap 9.4, BUN 12, Creatinine 0.60 D, Estimated Creat Clear 43, Estimated GFR 100, Est GFR ( Amer) 121 D, Glucose 98 D, Calcium 8.5, Magnesium 2.1, Total Bilirubin 0.3, AST 23, ALT 12 D, Alkaline Phosphatase 97, Total Protein 6.3, Albumin 3.2 L D, Globulin 3.1, Albumin/Globulin Ratio 1.0 L, TSH 20.60 H, Free T4 1.09, Free T4 Index 2.4 L, Thyroxine (T4) 6.6, T3 Uptake 36 05/21/25 08:59: VBG pH 7.39, VBG pCO2 55.7 H, VBG pO2 31.7, VBG HCO3 33.3 H, VBG Total CO2 35.0 H, VBG O2 Saturation 60.1, VBG Base Excess 8.4 H, VBG Lactic Acid 1.3 I & O for Last 24 hours: Intake & Output 05/18/25 05/19/25 05/20/25 05/21/25 23:59 23:59 23:59 23:59 Intake Total 500 / 500 120 / 120 Output Total 0 / 0 Balance 500 / 500 120 / 120 Weight 103 lb 107 lb 6.4 oz Constitutional Constitutional: no acute distress *Routine Respiratory Exam Respiratory: Present CTA bilaterally and symmetric chest movement *Routine Cardiovascular Exam Cardiovascular: Present RRR, Normal S1 and Normal S2 *Routine Abdominal Exam Abdominal: Present soft and normoactive bowel sounds; Absent tenderness *Routine Extremities Exam Extremities: Present full ROM and normal capillary refill; Absent edema *Routine Skin Exam Skin: Present intact, dry and warm Detailed Neck Exam: Thyroids Thyroid: Absent bruit Meds Home Medications and Allergies Home Medications ?Medication ?Instructions ?Recorded ?Confirmed ?Type levothyroxine 125 mcg tablet 125 mcg PO DAILY #90 tabs 01/27/25 05/20/25 Rx aspirin 81 mg capsule 81 mg PO DAILY #90 caps 02/10/25 05/20/25 Rx furosemide 20 mg tablet (Lasix) 10 mg (1/2 x 20 mg) PO DAILY #30 02/10/25 05/20/25 Rx tabs metoprolol succinate 25 mg 25 mg PO DAILY #90 tabs 02/10/25 05/20/25 Rx tablet,extended release 24 hr sacubitril 24 mg-valsartan 26 mg 1 tab PO BID #180 tabs 02/10/25 05/20/25 Rx tablet (Entresto) albuterol sulfate 90 mcg/actuation 2 puff inhalation Q4HP PRN 05/20/25 05/20/25 History aerosol inhaler Shortness Of Breath citalopram 20 mg tablet 20 mg PO DAILY 05/20/25 05/20/25 History omeprazole 20 mg capsule,delayed 20 mg PO DAILY 05/20/25 05/20/25 History release rosuvastatin 10 mg tablet 10 mg PO DAILY 05/20/25 05/20/25 History spironolactone 25 mg tablet 25 mg PO DAILY 05/20/25 05/20/25 History New Prescriptions to Start Prescriptions: Allergies Allergy/AdvReac Type Severity Reaction Status Date / Time codeine AdvReac Mild Other Verified 05/20/25 13:38 Assessment and Plan *Assessment and plan (1) Abnormal EKG: Status: Acute Category: Medical Code(s): R94.31 - Abnormal electrocardiogram [ECG] [EKG] (2) Back pain: Status: Acute Category: Medical Code(s): M54.9 - Dorsalgia, unspecified Plan Abnormal EKG Back pain Normal normal coronaries-left heart catheterization 04/2025 Troponins negative CTA negative for PE Preliminary echo report shows a normal EF. CV summary 05/21/2025: Patient is CV stable for discharge home. Continue home meds. Please have patient follow-up in cardiology clinic as needed.
[2025-05-21] MEDS: IPRATROPIUM/ALBUTEROL 3 ML NEB IH (10:56)
--- NOTE | 2025-05-21 11:50 | EXP.DC.SUM ---
General Admission date:: 05/20/25 Hospital Course Hospital Course Hospital Course: Priya Meredith is a 64-year-old female patient with a medical history significant for degenerative disc disease of lumbar spine who presented from PCPs office due to acute on chronic low back pain and an abnormal EKG with ST depressions in in inferior and lateral leads. Given these findings, Dr. Kidd was consulted who recommended emergent LHC. Patient was taken to the Dialysis Tech which remarkably did not reveal coronary disease by Dr. Lucero. Repeat EKG did not show these ST abnormalities in the ED. Upon my evaluation of the patient, she was still slightly sedated and stated she was feeling better. No chest pain, shortness of breath. Patient will be monitored overnight for further evaluation and management on telemetry. #Abnormal EKG ? S/p LHC on 05/20/2025 with normal coronary disease. ECHO showed trivial pericardial effusion without tamponade, but otherwise unremarkable. Troponins normal. ? Repeat EKG unremarkable. Cardiology evaluated, no further recommendations. ? Follow-up with cardiology within 2 weeks. Stable throughout hospital course, no chest pain, shortness of breath. #Lumbar degenerative disc disease ? Patient presented with acute on chronic low back pain, no red flag symptoms. ? Prescribed meloxicam 7.5 mg twice daily as needed. #Hypothyroidism #Elevated TSH #Euthyroid sick syndrome ? TSH 20.60, free T4 normal 1.09 likely representing euthyroid sick syndrome. Patient would benefit from repeat TFTs in the outpatient setting to confirm this. ? Increased levothyroxine from 125 to 150 mcg in the interim due to low normal free T4. #Dyspnea on exertion #Chronic hypoxic respiratory failure ?Will need PFTs outpatient. Started on Anoro Ellipta with a history of smoking. Total time spent on discharge: 32 minutes on chart review, counseling, documentation, and direct care with patient. Exam Data for Last 24 hours Vital signs and Labs for Last 24 Hours: Temp Pulse Resp BP Pulse Ox O2 Del Method O2 Flow Rate 97.8 F 79 18 110/63 97 Nasal Cannula 2 05/21/25 08:00 05/21/25 10:59 05/21/25 08:00 05/21/25 08:00 05/21/25 10:58 05/21/25 10:58 05/21/25 10:58 Laboratory Results - last 24 hr 05/20/25 14:10: WBC 14.4 H, RBC 4.37, Hgb 13.1, Hct 39.9, MCV 91.3, MCH 30.0, MCHC 32.8, RDW 15.9, Plt Count 562 H, MPV 9.4, Neut % (Auto) 80.5 H, Lymph % (Auto) 14.0, [place] % (Auto) 4.7, Eos % (Auto) 0.3, Baso % (Auto) 0.2, Neut # (Auto) 11.6 H, Lymph # (Auto) 2.0, [place] # (Auto) 0.7, Eos # (Auto) 0.0, Baso # (Auto) 0.0, PT 11.5, INR 1.04, APTT 29.3, Sodium 139, Potassium 3.3 L, Chloride 94 L, Carbon Dioxide 34 H, Anion Gap 14.3, BUN 16, Creatinine 0.80, Estimated Creat Clear 41, Estimated GFR 72, Est GFR ( Amer) 87, Glucose 150 H, Calcium 9.3, Total Bilirubin 0.4, AST 26, ALT 18, Alkaline Phosphatase 121, Troponin I 0.02, NT-Pro-B Natriuret Pep 1920 H, Total Protein 7.9, Albumin 4.0, Globulin 3.9 H, Albumin/Globulin Ratio 1.0 L, Lipase 29, HCV Ab JODIE w/Rflx PCR Qn Negative, HIV Ag/Ab Combo Qual Negative 05/20/25 14:15: VBG pH 7.31, VBG pCO2 62.0 H, VBG pO2 24.6 L, VBG HCO3 30.6 H, VBG Total CO2 32.5 H, VBG O2 Saturation 37.1 L, VBG Base Excess 4.3 H, VBG Lactic Acid 2.5 H 05/20/25 17:20: Troponin I 0.02 05/20/25 18:58: Lactate 0.8 05/20/25 19:02: POC Glucose 77 05/20/25 20:32: Troponin I 0.03 05/21/25 06:08: WBC 9.2 D, RBC 3.89 L, Hgb 11.3 L D, Hct 35.3 L, MCV 90.7, MCH 29.0, MCHC 32.0, RDW 15.9, Plt Count 467 H, MPV 9.4, Neut % (Auto) 66.6, Lymph % (Auto) 24.0, [place] % (Auto) 7.0, Eos % (Auto) 1.7, Baso % (Auto) 0.5, Neut # (Auto) 6.1, Lymph # (Auto) 2.2, [place] # (Auto) 0.6, Eos # (Auto) 0.2, Baso # (Auto) 0.1, Sodium 138, Potassium 3.4 L, Chloride 99, Carbon Dioxide 33 H, Anion Gap 9.4, BUN 12, Creatinine 0.60 D, Estimated Creat Clear 43, Estimated GFR 100, Est GFR ( Amer) 121 D, Glucose 98 D, Calcium 8.5, Magnesium 2.1, Total Bilirubin 0.3, AST 23, ALT 12 D, Alkaline Phosphatase 97, Total Protein 6.3, Albumin 3.2 L D, Globulin 3.1, Albumin/Globulin Ratio 1.0 L, TSH 20.60 H, Free T4 1.09, Free T4 Index 2.4 L, Thyroxine (T4) 6.6, T3 Uptake 36 05/21/25 08:59: VBG pH 7.39, VBG pCO2 55.7 H, VBG pO2 31.7, VBG HCO3 33.3 H, VBG Total CO2 35.0 H, VBG O2 Saturation 60.1, VBG Base Excess 8.4 H, VBG Lactic Acid 1.3 I & O for Last 24 hours: Intake & Output 05/18/25 05/19/25 05/20/25 05/21/25 23:59 23:59 23:59 23:59 Intake Total 500 / 500 120 / 120 Output Total 0 / 0 Balance 500 / 500 120 / 120 Weight 46.72 kg 48.716 kg Constitutional Constitutional: no acute distress *Routine HEENT Exam Head: Present normocephalic Eye: Present EOMI and PERRL ENT: Present mucous membranes moist *Routine Neck Exam Neck: Present supple; Absent lymphadenopathy *Routine Respiratory Exam Respiratory: Present CTA bilaterally *Routine Cardiovascular Exam Cardiovascular: Present RRR *Routine Abdominal Exam Abdominal: Present soft and normoactive bowel sounds; Absent tenderness *Routine Extremities Exam Extremities: Absent cyanosis, clubbing or edema *Routine Skin Exam Skin: Present warm; Absent rash *Routine Neurological Exam Neurological: Present alert and oriented X3 Results Data Completed and Pending Labs on day of discharge: Labs from last 24 hours 05/21/25 05/21/25 05/20/25 08:59 06:08 20:32 WBC 9.2 D RBC 3.89 L Hgb 11.3 L D Hct 35.3 L MCV 90.7 MCH 29.0 MCHC 32.0 RDW 15.9 Plt Count 467 H MPV 9.4 Neut % (Auto) 66.6 Lymph % (Auto) 24.0 [place] % (Auto) 7.0 Eos % (Auto) 1.7 Baso % (Auto) 0.5 Neut # (Auto) 6.1 Lymph # (Auto) 2.2 [place] # (Auto) 0.6 Eos # (Auto) 0.2 Baso # (Auto) 0.1 PT INR APTT VBG pH 7.39 VBG pCO2 55.7 H VBG pO2 31.7 VBG HCO3 33.3 H VBG Total CO2 35.0 H VBG O2 Saturation 60.1 VBG Base Excess 8.4 H VBG Lactic Acid 1.3 Sodium 138 Potassium 3.4 L Chloride 99 Carbon Dioxide 33 H Anion Gap 9.4 BUN 12 Creatinine 0.60 D Estimated Creat Clear 43 Estimated GFR 100 Est GFR ( Amer) 121 D Glucose 98 D POC Glucose Lactate Calcium 8.5 Magnesium 2.1 Total Bilirubin 0.3 AST 23 ALT 12 D Alkaline Phosphatase 97 Troponin I 0.03 NT-Pro-B Natriuret Pep Total Protein 6.3 Albumin 3.2 L D Globulin 3.1 Albumin/Globulin Ratio 1.0 L Lipase TSH 20.60 H Free T4 1.09 Free T4 Index 2.4 L Thyroxine (T4) 6.6 T3 Uptake 36 HCV Ab JODIE w/Rflx PCR Qn HIV Ag/Ab Combo Qual 05/20/25 05/20/25 05/20/25 19:02 18:58 17:20 WBC RBC Hgb Hct MCV MCH MCHC RDW Plt Count MPV Neut % (Auto) Lymph % (Auto) [place] % (Auto) Eos % (Auto) Baso % (Auto) Neut # (Auto) Lymph # (Auto) [place] # (Auto) Eos # (Auto) Baso # (Auto) PT INR APTT VBG pH VBG pCO2 VBG pO2 VBG HCO3 VBG Total CO2 VBG O2 Saturation VBG Base Excess VBG Lactic Acid Sodium Potassium Chloride Carbon Dioxide Anion Gap BUN Creatinine Estimated Creat Clear Estimated GFR Est GFR ( Amer) Glucose POC Glucose 77 Lactate 0.8 Calcium Magnesium Total Bilirubin AST ALT Alkaline Phosphatase Troponin I 0.02 NT-Pro-B Natriuret Pep Total Protein Albumin Globulin Albumin/Globulin Ratio Lipase TSH Free T4 Free T4 Index Thyroxine (T4) T3 Uptake HCV Ab JODIE w/Rflx PCR Qn HIV Ag/Ab Combo Qual 05/20/25 05/20/25 14:15 14:10 WBC 14.4 H RBC 4.37 Hgb 13.1 Hct 39.9 MCV 91.3 MCH 30.0 MCHC 32.8 RDW 15.9 Plt Count 562 H MPV 9.4 Neut % (Auto) 80.5 H Lymph % (Auto) 14.0 [place] % (Auto) 4.7 Eos % (Auto) 0.3 Baso % (Auto) 0.2 Neut # (Auto) 11.6 H Lymph # (Auto) 2.0 [place] # (Auto) 0.7 Eos # (Auto) 0.0 Baso # (Auto) 0.0 PT 11.5 INR 1.04 APTT 29.3 VBG pH 7.31 VBG pCO2 62.0 H VBG pO2 24.6 L VBG HCO3 30.6 H VBG Total CO2 32.5 H VBG O2 Saturation 37.1 L VBG Base Excess 4.3 H VBG Lactic Acid 2.5 H Sodium 139 Potassium 3.3 L Chloride 94 L Carbon Dioxide 34 H Anion Gap 14.3 BUN 16 Creatinine 0.80 Estimated Creat Clear 41 Estimated GFR 72 Est GFR ( Amer) 87 Glucose 150 H POC Glucose Lactate Calcium 9.3 Magnesium Total Bilirubin 0.4 AST 26 ALT 18 Alkaline Phosphatase 121 Troponin I 0.02 NT-Pro-B Natriuret Pep 1920 H Total Protein 7.9 Albumin 4.0 Globulin 3.9 H Albumin/Globulin Ratio 1.0 L Lipase 29 TSH Free T4 Free T4 Index Thyroxine (T4) T3 Uptake HCV Ab JODIE w/Rflx PCR Qn Negative HIV Ag/Ab Combo Qual Negative DS: Diagnosis Discharge Diagnosis (1) Abnormal EKG: Status: Acute Code(s): R94.31 - Abnormal electrocardiogram [ECG] [EKG] (2) Back pain: Status: Acute Code(s): M54.9 - Dorsalgia, unspecified Meds Home Medications and Allergies Home Medications ?Medication ?Instructions ?Recorded ?Confirmed ?Type aspirin 81 mg capsule 81 mg PO DAILY #90 caps 02/10/25 05/20/25 Rx furosemide 20 mg tablet (Lasix) 10 mg (1/2 x 20 mg) PO DAILY #30 02/10/25 05/20/25 Rx tabs metoprolol succinate 25 mg 25 mg PO DAILY #90 tabs 02/10/25 05/20/25 Rx tablet,extended release 24 hr sacubitril 24 mg-valsartan 26 mg 1 tab PO BID #180 tabs 02/10/25 05/20/25 Rx tablet (Entresto) Held on 05/21/25. Instructions: Resume on 05/28/25. Your blood pressures have been stable without this medication. Please follow-up with cardiology for further guidance. albuterol sulfate 90 mcg/actuation 2 puff inhalation Q4HP PRN 05/20/25 05/20/25 History aerosol inhaler Shortness Of Breath citalopram 20 mg tablet 20 mg PO DAILY 05/20/25 05/20/25 History omeprazole 20 mg capsule,delayed 20 mg PO DAILY 05/20/25 05/20/25 History release rosuvastatin 10 mg tablet 10 mg PO DAILY 05/20/25 05/20/25 History spironolactone 25 mg tablet 25 mg PO DAILY 05/20/25 05/20/25 History Held on 05/21/25. Instructions: Resume on 06/04/25. Your blood pressures have been stable without this medication. Please follow-up with cardiology for further guidance. levothyroxine 150 mcg capsule 150 mcg PO DAILY 30 days #30 caps 05/21/25 Rx meloxicam 7.5 mg tablet 7.5 mg PO BIDP PRN pain #14 tabs 05/21/25 Rx umeclidinium 62.5 mcg-vilanterol 1 inh inhalation DAILY #60 ea 05/21/25 Rx 25 mcg/actuation powdr for inhalation (Anoro Ellipta) New Prescriptions to Start Prescriptions: levothyroxine Cosme Rhodes meloxicam Cosme Rhodeseclidinium-vilanterol [Anoro Ellipta] Cosme Rhodes Allergies Allergy/AdvReac Type Severity Reaction Status Date / Time codeine AdvReac Mild Other Verified 05/20/25 13:38 Discharge Plan Disposition Patient Disposition: Home, Self-Care Condition: Fair Follow up Plan Follow up with: Kiana Briseno APRN [Nurse Practitioner, Cardiology] - 05/28/25 1:00 pm Jeanie Almanzar APRN [Primary Care Provider, Family Practice] - 05/28/25 10:20 am Prescriptions/Medication Reconciliation: New meloxicam 7.5 mg tablet 7.5 mg PO BIDP PRN (Reason: pain) Qty: 14 0RF levothyroxine 150 mcg capsule 150 mcg PO DAILY 30 Days Qty: 30 0RF umeclidinium-vilanterol [Anoro Ellipta] 62.5-25 mcg/actuation Blister With Device 1 inh inhalation DAILY Qty: 60 0RF Continued aspirin 81 mg capsule 81 mg PO DAILY Qty: 90 3RF metoprolol succinate 25 mg tablet extended release 24 hr 25 mg PO DAILY Qty: 90 1RF furosemide [Lasix] 20 mg tablet 10 mg PO DAILY Qty: 30 2RF citalopram 20 mg tablet 20 mg PO DAILY albuterol sulfate 90 mcg/actuation HFA aerosol inhaler 2 puff inhalation Q4HP PRN (Reason: Shortness Of Breath) omeprazole 20 mg capsule,delayed release(DR/EC) 20 mg PO DAILY rosuvastatin 10 mg tablet 10 mg PO DAILY Held Entresto 24-26 mg tablet 1 tab PO BID Qty: 180 2RF Hold Instructions: Resume on 05/28/25. Your blood pressures have been stable without this medication. Please follow-up with cardiology for further guidance. spironolactone 25 mg tablet 25 mg PO DAILY Hold Instructions: Resume on 06/04/25. Your blood pressures have been stable without this medication. Please follow-up with cardiology for further guidance. Discontinued levothyroxine 125 mcg tablet 125 mcg PO DAILY Qty: 90 2RF Problem Reconciliation Problems Reviewed?: Yes Patient Discharge Instructions Patient Instructions: Heart Attack, Cardiac Catheterization, Surgical Site Infection, Cardiology Catheterization Patient / Family Discharge Instructions Print Language: Citizen Of [place] Providers Primary Care Provider: Jeanie Almanzar Admit Provider: Cosme Rhodes Attending Provider: Cosme Rhodes
[2025-05-21] MEDS: UMECLIDINIUM/VILANTEROL 62.5/25MCG INHALER 1 PUFF IH (13:03)
--- NOTE | 2025-05-23 10:56 | SW/DCPLANNER ---
Spoke with patient on the phone. Patient stated that she is doing well. Patient stated that she is aware of her upcoming appointments. Patient stated that she is going today to get her new medicine. Patient stated that she does not have any concerns or questions at this time. [facility]
== END 2025-05-21 13:30 | disposition home or self-care (01) ==
LOC: ER 14:31 → CATHLAB 15:18 → 2ND 16:44
PROVIDERS: Internal Medicine Cardiovascular Disease; Admitting Provider Student in an Organized Health Care Education/Training Program; Emergency Provider Student in an Organized Health Care Education/Training Program; PCP Family Medicine; Visit Provider Student in an Organized Health Care Education/Training Program
PROC: 4A023N7 Measurement of Cardiac Sampling and Pressure, Left Heart, Percutaneous Approach (ICD-10-PCS; CPT 93452; principal; 2025-05-20 15:00)
DX: I20.0 Unstable angina (principal); R94.31 Abnormal electrocardiogram [ECG] [EKG]; R60.0 Localized edema; R06.02 Shortness of breath; M54.50 Low back pain, unspecified; R93.1 Abnormal findings on diagnostic imaging of heart and coronary circulation; R94.6 Abnormal results of thyroid function studies; M51.369 Other intervertebral disc degeneration, lumbar region without mention of lumbar back pain or lower extremity pain; J44.9 Chronic obstructive pulmonary disease, unspecified; I25.2 Old myocardial infarction; Z87.891 Personal history of nicotine dependence; Z82.49 Family history of ischemic heart disease and other diseases of the circulatory system; Z79.82 Long term (current) use of aspirin; Z79.890 Hormone replacement therapy; Z79.899 Other long term (current) drug therapy; Z88.5 Allergy status to narcotic agent
CPT/HCPCS: 36415; 71275; 80053; 82803; 82962; 83605; 83690; 83735; 83880; 84436; 84439; 84443; 84479; 84484; 85025; 85610; 85730; 86803; 87389; 93005; 93306; 93458; 93971; 94640; 97162; 97166; 99152; 99285; C1725; C1760; C1769; G0378; J1200; J1644; J1650; J1885; J2250; J3010; J7040; Q9967